=== PATIENT | male | born 1960 | race Caucasian/White ===

== ENCOUNTER 2016-07-17 21:57 | Inpatient (IN) | payer OTHER ==
[~2016-07-17] VITALS: Ht 167.6 cm; Wt 77.1 kg
[~2016-07-17 21:57] MED LIST: AEROMIS4 INH; VENTAER INH; ZITH250T PO
[2016-07-17 21:58] VITALS: RESP 22; TEMP 97.7
[2016-07-17 22:00] VITALS: BP 123/87; PULSE 89; RESP 16; O2SAT 96
[2016-07-17] MEDS ORDERED: AMIO200T PO (22:09)
[2016-07-17 22:30] VITALS: BP 90/50; PULSE 69; RESP 16; O2SAT 96
[2016-07-17 23:09] LABS: AUTOMATED NEUTROPHIL # 4.9 TH/MM3 (1.8-7.7); BASOPHIL % 0.4 % (0.0-2.0); EOSINOPHIL # 0.2 TH/MM3 (0-0.4); EOSINOPHIL % 2.3 % (0.0-4.0); HEMATOCRIT 32.3 % (39.0-51.0); HEMO FLAGS DIFF FINAL; LYMPH % 27.7 % (9.0-44.0); LYMPHOCYTE # 2.3 TH/MM3 (1.0-4.8); MEAN CELL VOLUME 100.8 FL (80.0-100.0); MEAN CORPUSCULAR HEMOGLOBIN 35.5 PG (27.0-34.0); MEAN CORPUSCULAR HGB CONC 35.3 % (32.0-36.0); NEUT % 58.6 % (16.0-70.0); PLATELET COUNT 121 TH/MM3 (150-450); RED BLOOD COUNT 3.21 MIL/MM3 (4.50-5.90); RED CELL DISTRIBUTION WIDTH 13.7 % (11.6-17.2); WHITE BLOOD COUNT 8.3 TH/MM3 (4.0-11.0)
[2016-07-17] MEDS ORDERED: CARV3.125 PO (23:15)
[2016-07-17 23:22] LABS: INTERNATIONAL NORMALIZED RATIO 1.1 RATIO; PROTHROMBIN TIME - PATIENT 11.7 SEC (9.8-11.6)
[2016-07-17] MEDS ORDERED: SODIUM CHLOR 0.9% 1000 ML INJ 1,000 ML IV SCH (23:22)
[2016-07-17 23:30] VITALS: BP_SYST 120; BP_SYST 90; BP_DIAS 50; BP_DIAS 61; PULSE 61; PULSE 69; RESP 16; O2SAT 97
[2016-07-17] MEDS ORDERED: PANTOPRAZOLE INJ 80 MG in SODIUM CHLORIDE 0.9% INJ 35 ML IV ONE (23:30)
--- NOTE | 2016-07-17 23:31 | PD ---
HPI Chief Complaint: GI Complaint Time Seen by Provider: 23:11 Travel History International Travel<30 days: No Contact w/Intl Traveler<30days: No Traveled to known affect area: No History of Present Illness HPI 56-year-old male complains of bloody stool coming out of the colostomy. Patient states that he has bloody stool for the past 3 days. 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 Patient states that he has abdominal pain for the past 3 days also. Patient states the pain the sharp pain most in the right side the abdomen. Patient denies any pain radiation. Patient states that the pain is worse on the right position. Patient states the pain is better when lying down. Patient denies any nausea vomiting. Patient denies any fever chills. Patient denies any history GI bleed. Patient states that he had facial trauma status post facial surgery that required blood transfusion about 5 years ago. Patient has history of atrial fibrillation, hypertension. Patient's on amiodarone. Patient denies any recent NSAIDs intake. 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) Pneumonia: Yes Influenza Vaccination: No Past Surgical History Abdominal Surgery: Yes ("Colon Surgery" ) Appendectomy: Yes Cardiac Surgery: No Ear Surgery: No Endocrine Surgery: No Eye Surgery: No Genitourinary Surgery: No Oral Surgery: No Thoracic Surgery: No Other Surgery: Yes (facial, HERNIA REPAIR , LUNG SURGERY ) Social History Alcohol Use: Yes (10 BEERS DAILY ) Tobacco Use: Yes (5-15 cigs a day.) Substance Use: Yes (ETOH Abuse - today 9 beers BAL 241; Nicotine - 5-15 cigs a day.) Allergies-Medications (Allergen,Severity, Reaction): Uncoded Allergies: NARCOTICS (Allergy, Severe, ACTS OUT/BEHAVIORAL, 07/25/07) Reported Meds & Prescriptions Reported Meds & Active Scripts Active Reported Coreg (Carvedilol) 3.125 Mg Tab 3.125 Mg PO BID Amiodarone (Amiodarone HCl) 200 Mg Tab 200 Mg PO DAILY Review of Systems General / Constitutional: No: Fever Eyes: No: Visual changes HENT: No: Headaches Cardiovascular: No: Chest Pain or Discomfort Respiratory: No: Shortness of Breath Gastrointestinal: Positive: Abdominal Pain, Hematochezia Genitourinary: No: Dysuria Musculoskeletal: No: Pain Skin: No Rash Neurologic: No: Weakness Psychiatric: No: Depression Endocrine: No: Polydipsia Hematologic/Lymphatic: No: Easy Bruising Physical Exam Narrative GENERAL: Well-nourished, well-developed patient. SKIN: Warm and dry. HEAD: Normocephalic. EYES: No scleral icterus. No injection or drainage. NECK: Supple, trachea midline. No JVD or lymphadenopathy. CARDIOVASCULAR: Regular rate and rhythm without murmurs, gallops, or rubs. RESPIRATORY: Breath sounds equal bilaterally. No accessory muscle use. GASTROINTESTINAL: Abdomen soft, nondistended. Patient has moderate tenderness on palpation right side of the abdomen. No rebound tenderness. No mass. Colostomy in place. MUSCULOSKELETAL: No cyanosis, or edema. BACK: Nontender without obvious deformity. No CVA tenderness. Neurologic exam normal. Data Data Last Documented VS Vital Signs Date Time Temp Pulse Resp B/P Pulse Ox O2 Delivery O2 Flow Rate FiO2 07/18/16 00:00 79 16 114/58 07/17/16 23:30 97 07/17/16 22:30 Room Air 07/17/16 21:58 97.7 Orders Complete Blood Count With Diff (07/17/16 22:53) Comprehensive Metabolic Panel (07/17/16 22:53) Prothrombin Time / Inr (Pt) (07/17/16 22:53) Type And Screen (07/17/16 23:22) Lipase (07/17/16 23:22) Act Partial Throm Time (Ptt) (07/17/16 23:22) Urinalysis - C+S If Indicated (07/17/16 23:22) Sodium Chlor 0.9% 1000 Ml Inj (Ns 1000 M (07/17/16 23:22) Pantoprazole Inj (Protonix Inj) (07/17/16 23:30) Pantoprazole Inj (Protonix Inj) (07/17/16 23:30) Ct Abd/Pel W Iv Contrast(Rout) (07/18/16 ) Nicotine 14 Mg Patch.24 Hr (Habitrol 14 (07/17/16 23:45) Sodium Chlor 0.9% 1000 Ml Inj (Ns 1000 M (07/18/16 00:15) Labs Laboratory Tests Test 07/17/16 07/17/16 22:00 23:30 White Blood Count 8.3 TH/MM3 Red Blood Count 3.21 MIL/MM3 Hemoglobin 11.4 GM/DL Hematocrit 32.3 % Mean Corpuscular Volume 100.8 FL Mean Corpuscular Hemoglobin 35.5 PG Mean Corpuscular Hemoglobin 35.3 % Concent Red Cell Distribution Width 13.7 % Platelet Count 121 TH/MM3 Mean Platelet Volume 9.7 FL Neutrophils (%) (Auto) 58.6 % Lymphocytes (%) (Auto) 27.7 % Monocytes (%) (Auto) 11.0 % Eosinophils (%) (Auto) 2.3 % Basophils (%) (Auto) 0.4 % Neutrophils # (Auto) 4.9 TH/MM3 Lymphocytes # (Auto) 2.3 TH/MM3 Monocytes # (Auto) 0.9 TH/MM3 Eosinophils # (Auto) 0.2 TH/MM3 Basophils # (Auto) 0.0 TH/MM3 CBC Comment DIFF FINAL Differential Comment Prothrombin Time 11.7 SEC Prothromb Time International 1.1 RATIO Ratio Activated Partial 23.2 SEC Thromboplast Time Lipase 283 U/L Sodium Level 122 MEQ/L Potassium Level 3.4 MEQ/L Chloride Level 84 MEQ/L Carbon Dioxide Level 25.0 MEQ/L Anion Gap 13 MEQ/L Blood Urea Nitrogen 10 MG/DL Creatinine 1.09 MG/DL Estimat Glomerular Filtration 70 ML/MIN Rate Random Glucose 95 MG/DL Calcium Level 8.4 MG/DL Total Bilirubin 0.7 MG/DL Aspartate Amino Transf 118 U/L (AST/SGOT) Alanine Aminotransferase 75 U/L (ALT/SGPT) Alkaline Phosphatase 83 U/L Total Protein 6.8 GM/DL Albumin 3.2 GM/DL Blood Type B POSITIVE Antibody Screen NEGATIVE Blood Bank Comment MDM Medical Decision Making Medical Screen Exam Complete: Yes Emergency Medical Condition: Yes Interpretation(s) 12:45 AM. He received WBC 8.3. Hemoglobin 11.5 hematocrit 32.3. MCV 100.8. Platelets 121. Sodium 122. Potassium 3.4. Chloride 84. Calcium 8.4. AST 118. Differential Diagnosis Differential diagnosis including AV malformation, colitis, bowel lesion. Narrative Course 56-year-old male with abdominal pain and bloody stool from colostomy. Normal saline solution 1 L IV bolus. Protonix bolus and drip started. Normal saline solution 1 25 cc an hour. Levaquin 750 mg IV. Flagyl 500 mg IV. Diagnosis Primary Impression: GI bleed Qualified Code: K92.2 - Gastrointestinal hemorrhage, unspecified gastrointestinal hemorrhage type Additional Impression: Hyponatremia Admitting Information Admitting Physician Requests: Admit Manfred Stone MD Jul 17, 2016 23:31
[2016-07-17] MEDS ORDERED: NICOTINE 14 MG/24 HR PATCH TD ONE (23:45)
[2016-07-17] MEDS: PANTOPRAZOLE INJ 80 MG in SODIUM CHLORIDE 0.9% INJ 100 ML IV SCH (23:48)
[2016-07-17 23:49] LABS: APTT (PATIENT) 23.2 SEC (24.3-30.1)
[2016-07-18] VITALS: BP 114/58; PULSE 79; RESP 16
[2016-07-18 00:07] LABS: ALKALINE PHOSPHATASE 83 U/L (45-117); ALT (GPT) 75 U/L (12-78); ANION GAP 13 MEQ/L (5-15); AST (GOT) 118 U/L (15-37); BLOOD UREA NITROGEN 10 MG/DL (7-18); CHLORIDE 84 MEQ/L (98-107); GLOMERULAR FILTRATION RATE 70 ML/MIN (>89); POTASSIUM 3.4 MEQ/L (3.5-5.1); TOTAL BILIRUBIN ADULT 0.7 MG/DL (0.2-1.0)
[2016-07-18 00:09] LABS: SODIUM (NA) 122 MEQ/L (136-145)
[2016-07-18] MEDS ORDERED: SODIUM CHLOR 0.9% 1000 ML INJ 1,000 ML IV SCH (00:15)
[2016-07-18] MEDS ORDERED: LEVOFLOXACIN 750 MG PREMIX INJ 150 ML IV ONE (01:00)
[2016-07-18] MEDS ORDERED: metroNIDAZOLE 500 MG INJ 100 ML IV ONE (01:00)
[2016-07-18] MEDS ORDERED: IOHEXOL 350 MG/ML 10 ML VIAL (for RAD DIAG) IV ONE (01:34)
--- NOTE | 2016-07-18 01:56 | RADRPT ---
EXAM DATE/TIME: 07/18/2016 01:32 [facility] COMPARISON: CT ABDOMEN & PELVIS W CONTRAST, April 23, 2015, 11:27. INDICATIONS : Right sided abdomen pain with bloody discharge from colostomy. IV CONTRAST: 96 cc Omnipaque 350 (iohexol) IV ORAL CONTRAST: No oral contrast ingested. RADIATION DOSE: 11.72 CTDIvol (mGy) MEDICAL HISTORY : Cardiovascular disease. Hypertension. SURGICAL HISTORY : Colostomy. Appendectomy.Hernia ENCOUNTER: Initial ACUITY: 3 days PAIN SCALE: 5/10 LOCATION: Right abdomen TECHNIQUE: Volumetric scanning of the abdomen and pelvis was performed. Using automated exposure control and ad justment of the mA and/or kV according to patient size, radiation dose was kept as low as reasonably achievable to obtain optimal diagnostic quality images. FINDINGS: LOWER LUNGS: The visualized lower lungs are clear. LIVER: Homogeneous density without lesion. The left lobe of the liver is prominent in size but stable compar ed to the prior study. There continues to be some fatty infiltration of the liver. There is no dilati on of the biliary tree. No calcified gallstones. SPLEEN: Normal size without lesion. Granulomas. PANCREAS: Within normal limits. KIDNEYS: Normal in size and shape. There is no mass, stone or hydronephrosis. Extrarenal pelves. ADRENAL GLANDS: Within normal limits. VASCULAR: There is no aortic aneurysm. Atherosclerotic changes. Duplicated IVC. A few stable nonspecific perire ctal lymph nodes. BOWEL/MESENTERY: There is evidence of abdominal surgery with bowel resection. There is an ileostomy in the left midabd omen which is stable in its appearance. The bowel gas pattern is within normal limits with no evidenc e of obstruction. 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 No definite inflammatory changes are demonstrated. No free fluid or loculated fluid collections are seen. No free air is seen. ABDOMINAL WALL: Postsurgical changes. RETROPERITONEUM: There are a few stable para-aortic lymph nodes. Otherwise no definite adenopathy.. BLADDER: No wall thickening or mass. REPRODUCTIVE: Within normal limits. INGUINAL: There is no lymphadenopathy. Small right inguinal hernia containing fat. No significant change. MUSCULOSKELETAL: Within normal limits for patient age. Bony degenerative changes. Compared to the prior exam there has been no significant changes. CONCLUSION: 1. Stable CT scan of the abdomen and pelvis compared to 2015. No new or significant changes. No acute intra-abdominal or pelvic pathology. 2. Stable prominence of the left lobe of the liver. 3. Stable prominent Allie's pouch 4. Stable fatty infiltration of the liver. Jasson Moreno MD on July 18, 2016 at 1:45 Board Certified Radiologist. This report was verified electronically.
[2016-07-18] MEDS ORDERED: SODIUM CHLORIDE 0.9% FLUSH 5 ML FLUSH FLUSH PRN (03:45)
[2016-07-18] MEDS ORDERED: NALOXONE HCL 0.4 MG/ML AMP IV PRN (03:45)
[2016-07-18] MEDS ORDERED: LORazepam 2 MG/ML VIAL IV PUSH PRN ×2 (03:45)
[2016-07-18] MEDS ORDERED: FLUMAZENIL 0.5 MG/5 ML VIAL IV PUSH PRN (03:45)
[2016-07-18] MEDS ORDERED: ACETAMINOPHEN 325 MG TAB PO PRN ×2 (03:45)
--- NOTE | 2016-07-18 03:57 | HHI.HP ---
[facility] Unknown Admission Diagnosis GI bleed. Hyponatremia. Diagnoses: Chief Complaint: Blood in stool, abdominal pain Travel History International Travel<30 Days: No Contact w/Intl Traveler <30 Da: No Traveled to Known Affected Are: No History of Present Illness The patient is a 56-year-old male with a past medical history of a defect with weakened abdominal muscles requiring ostomy placement who is presenting to the hospital with abdominal pain and excessive bloody output from the ostomy. The patient says that he noticed bloody output over the past 3 days. He says he has had to empty the ostomy bag much more frequently than normal. He has had decreased energy and poor balance over the last few days as well. He says he has been using a wheelchair recently. He says over the past couple of weeks he has had right-sided abdominal pain upon palpation. He endorses a poor appetite. He says he eats once a day. He does drink up to 10 beers daily. He says he has had the shakes before but has never had an alcohol withdrawal seizure. He also mentions that he has chronic numbness and tingling in his legs and feet. He says he has been following up with the neurologist and has had MRIs but does not know the results of those tests are. The patient says that he does not take any blood thinners including aspirin for his atrial fibrillation. Review of Systems Constitutional: COMPLAINS OF: Fatigue, Change in appetite Gastrointestinal: COMPLAINS OF: Abdominal pain, Bloody stools Musculoskeletal: COMPLAINS OF: Back pain, Neck pain Neurologic: COMPLAINS OF: Abnormal gait, Paresthesias, Tremor, Poor Balance Past Family Social History Past Medical History Atrial fibrillation Hypertension Hyperlipidemia Bipolar disorder Alcohol abuse Past Surgical History Hernia repair 5 Lung fistula repair Facial surgery Appendectomy Allergies: Uncoded Allergies: NARCOTICS (Allergy, Severe, ACTS OUT/BEHAVIORAL, 07/25/07) Active Ordered Medications Current Medications Medications (Trade) Dose Ordered Sig/Vijay Route Start Time Stop Time Status Last Admin (Protonix Inj/NS Inj) 100 ml @ 10 mls/hr Q10H IV 07/17/16 23:30 07/17/16 23:48 (NS Flush) 2 ml UNSCH PRN FLUSH 07/18/16 03:45 (NS Flush) 2 ml BID FLUSH 07/18/16 09:00 (Tylenol) 650 mg Q4H PRN PO 07/18/16 03:45 (Tylenol) 650 mg Q6H PRN PO 07/18/16 03:45 (Narcan Inj) 0.4 mg UNSCH PRN IV 07/18/16 03:45 (Romazicon Inj) 0.2 mg Q1M PRN IV PUSH 07/18/16 03:45 07/18/16 03:50 (Ativan) 1 mg Q4H PRN PO 07/18/16 03:45 (Ativan Inj) 1 mg Q4H PRN IV PUSH 07/18/16 03:45 (Ativan) 2 mg Q2H PRN PO 07/18/16 03:45 (Ativan Inj) 2 mg Q2H PRN IV PUSH 07/18/16 03:45 (Ativan Inj) 2 mg Q1H PRN IV PUSH 07/18/16 03:45 Lorazepam 2 mg 2 mg Q15M PRN IV PUSH 07/18/16 03:45 (KCl Inj/D5W-NS 1000 ml Inj) 1,015 ml @ 100 mls/hr Q10H9M IV 07/18/16 03:45 Nicotine 1 patch 1 patch DAILY TD 07/18/16 09:00 (Flagyl 500 Mg Inj) 100 ml @ 100 mls/hr Q8H IV 07/18/16 09:00 UNV Family History The patient denies pertinent family history. Social History The patient smokes 1 pack per day. He drinks 10 beers daily. He denies any drug use. Physical Exam Vital Signs Vital Signs Date Time Temp Pulse Resp B/P Pulse Ox O2 Delivery O2 Flow Rate FiO2 07/18/16 00:00 79 16 114/58 07/17/16 23:30 61 16 120/61 97 07/17/16 22:30 69 16 90/50 96 Room Air 07/17/16 22:00 89 16 123/87 96 Room Air 07/17/16 21:58 97.7 22 Physical Exam GENERAL: Well-nourished, well-developed patient, resting comfortably. SKIN: Warm and dry. HEAD: Normocephalic, atraumatic. EYES: No scleral icterus. No injection or drainage. NECK: Supple, trachea midline. No JVD or lymphadenopathy. CARDIOVASCULAR: Regular rate and rhythm without murmurs, gallops, or rubs. RESPIRATORY: Breath sounds equal bilaterally. No accessory muscle use. GASTROINTESTINAL: Abdomen soft, nondistended. Patient has moderate tenderness on palpation on the right side of the abdomen. No rebound tenderness. No mass. Colostomy in place. MUSCULOSKELETAL: No cyanosis, or edema. BACK: Nontender without obvious deformity. No CVA tenderness. NEURO: No gross deficits. PSYCH: Mood and affect appropriate. Laboratory Laboratory Tests Test 07/17/16 07/17/16 22:00 23:30 White Blood Count 8.3 Red Blood Count 3.21 Hemoglobin 11.4 Hematocrit 32.3 Mean Corpuscular Volume 100.8 Mean Corpuscular Hemoglobin 35.5 Mean Corpuscular Hemoglobin 35.3 Concent Red Cell Distribution Width 13.7 Platelet Count 121 Mean Platelet Volume 9.7 Neutrophils (%) (Auto) 58.6 Lymphocytes (%) (Auto) 27.7 Monocytes (%) (Auto) 11.0 Eosinophils (%) (Auto) 2.3 Basophils (%) (Auto) 0.4 Neutrophils # (Auto) 4.9 Lymphocytes # (Auto) 2.3 Monocytes # (Auto) 0.9 Eosinophils # (Auto) 0.2 Basophils # (Auto) 0.0 CBC Comment DIFF FINAL Differential Comment Prothrombin Time 11.7 Prothromb Time International 1.1 Ratio Activated Partial 23.2 Thromboplast Time Lipase 283 Sodium Level 122 Potassium Level 3.4 Chloride Level 84 Carbon Dioxide Level 25.0 Anion Gap 13 Blood Urea Nitrogen 10 Creatinine 1.09 Estimat Glomerular Filtration 70 Rate Random Glucose 95 Calcium Level 8.4 Total Bilirubin 0.7 Aspartate Amino Transf 118 (AST/SGOT) Alanine Aminotransferase 75 (ALT/SGPT) Alkaline Phosphatase 83 Total Protein 6.8 Albumin 3.2 Blood Type B POSITIVE Antibody Screen NEGATIVE Blood Bank Comment Result Diagram: 07/17/160 07/17/16 2330 Imaging Last Impressions Abdomen/Pelvis CT 07/18/16 0000 Signed Impressions: Service Date/Time: Monday, July 18, 2016 01:32 - CONCLUSION: 1. Stable CT scan of the abdomen and pelvis compared to 2015. No new or significant changes. No acute intra-abdominal or pelvic pathology. 2. Stable prominence of the left lobe of the liver. 3. Stable prominent Allie's pouch 4. Stable fatty infiltration of the liver. Jasson Moreno MD Assessment and Plan Assessment and Plan GIB/ diarrhea/ abdominal pain The patient has had increased ostomy output with a significant amount of blood in it. He has had decreased energy and has felt off balance for the past few days. Gastroenterology was contacted by the emergency department. - Continue Protonix drip. - Keep the patient nothing by mouth with IV fluids. - Follow up with gastroenterology. - Continue Levaquin and Flagyl to cover for colitis as the patient is having abdominal pain and increased stool production. - Stool cultures, C. difficile PCR. Hyponatremia/ hypokalemia Sodium level is 122. The patient appears euvolemic. Secondary to excessive beer intake. The pt has had hyponatremia in the past. - IV fluids with KCl. - Follow BMP and adjust fluids as needed. Alcohol abuse The pt endorses up to 10 beers daily. - cessation instruction. - CIWA protocol. Atrial fibrillation The pt is on Coreg and amiodarone as an outpt. He is not on anticoagulation. - telemetry. - hold Coreg and amiodarone in the setting of relative hypotension. Nicotine abuse The pt smokes 1 PPD. - cessation instruction. - nicotine patch. PPx: SCDs; PPI. Code Status Full Discussed Condition With Dr. Stone, pt. Physician Certification 2 Midnight Certification Type: Admission for Inpatient Services Order for Inpatient Services The services are ordered in accordance with Medicare regulations or non- Medicare payer requirements, as applicable. In the case of services not specified as inpatient-only, they are appropriately provided as inpatient services in accordance with the 2-midnight benchmark. Estimated LOS (days): 2 days is the estimated time the patient will need to remain in the hospital, assuming treatment plan goals are met and no additional complications. Post-Hospital Plan: Home Quique Gaffney DO Jul 18, 2016 03:57
[2016-07-18 05:39] LABS: AUTOMATED NEUTROPHIL # 3.3 TH/MM3 (1.8-7.7); BASOPHIL % 0.5 % (0.0-2.0); EOSINOPHIL # 0.1 TH/MM3 (0-0.4); EOSINOPHIL % 1.2 % (0.0-4.0); HEMATOCRIT 30.7 % (39.0-51.0); LYMPH % 20.8 % (9.0-44.0); LYMPHOCYTE # 1.1 TH/MM3 (1.0-4.8); MEAN CELL VOLUME 101.6 FL (80.0-100.0); MEAN CORPUSCULAR HEMOGLOBIN 35.8 PG (27.0-34.0); MEAN CORPUSCULAR HGB CONC 35.2 % (32.0-36.0); NEUT % 63.5 % (16.0-70.0); PLATELET COUNT 68 TH/MM3 (150-450); RED BLOOD COUNT 3.02 MIL/MM3 (4.50-5.90); RED CELL DISTRIBUTION WIDTH 13.6 % (11.6-17.2); WHITE BLOOD COUNT 5.2 TH/MM3 (4.0-11.0)
[2016-07-18 05:42] LABS: HEMO FLAGS AUTO DIFF
[2016-07-18 06:05] LABS: ANION GAP 13 MEQ/L (5-15); AST (GOT) 103 U/L (15-37); BICARBONATE 23.9 MEQ/L (21.0-32.0); BLOOD UREA NITROGEN 10 MG/DL (7-18); CHLORIDE 91 MEQ/L (98-107); GLOMERULAR FILTRATION RATE 75 ML/MIN (>89); MAGNESIUM 1.7 MG/DL (1.5-2.5); POTASSIUM 3.6 MEQ/L (3.5-5.1); SODIUM (NA) 128 MEQ/L (136-145)
[2016-07-18 06:08] LABS: ALKALINE PHOSPHATASE 83 U/L (45-117); ALT (GPT) 65 U/L (12-78); TOTAL BILIRUBIN ADULT 0.6 MG/DL (0.2-1.0)
[2016-07-18] MEDS: POTASSIUM CHLORIDE INJ 30 MEQ in DEXT 5%-NACL 0.9% 1000 ML INJ 1,000 ML IV SCH ×2 (06:16→14:56)
[2016-07-18 07:48] LABS: PLATELET ESTIMATE SMEAR NORMAL (NORMAL); PLATELET MORPHOLOGY NORMAL (NORMAL); SCAN/DIFF AUTO DIFF CONFIRMED
--- NOTE | 2016-07-18 07:55 | PD.CONS ---
HPI History of Present Illness This is a 56 year old male patient with a hx of a defect with weakened abdominal muscles who has undergone multiple hernia repairs and had a colostomy placed at age 13. He reports that he has had 7 hernia repairs, with the last one being about [address] Reddy (pt unsure of spelling) in [place], [place]. He came to the ER for evaluation of GI bleeding that began 3 days ago. He does occasionally will have some GI bleeding, but states he has never had anything like this before. He reports when his symptoms began 3 days ago, it began with some nausea and vomiting. He did not vomit any blood or have coffee ground emesis. He denies any abdominal pain to me, but has significant RLQ tenderness on exam. For the past 3 days, he has had increased stool output and it has been a dark color almost black. He states that he has had a decreased appetite for the past 2 months. He has lost a significant amount amount of weight during that time with about 27 lbs lost. He has heartburn and reflux and takes TUMs for this. He states sometimes this is daily and sometimes not that often- it is related to food. He has it if he has anything with "a little bit of spice to it." He denies any hx of PUD. He cannot tell me when his last colonoscopy was. He states he has never had an EGD. He denies the use of any NSAIDs or ASA. He states he never takes this because once he did and had to go to the ER for the same symptoms. This was in [facility] and he cannot tell me exactly when. He reports that he has been more tired than usual and having generalized weakness. He denies any hx of Crohn's or Ulcerative colitis. (Radha Kebede) PFSH Past Medical History Atrial fibrillation Hypertension Hyperlipidemia Bipolar disorder Alcohol abuse Abdominal hernias GI bleeding in past- unclear etiology Past Surgical History Hernia repair 5 Lung fistula repair Facial surgery Appendectomy Colonoscopy (Radha Kebede) Uncoded Allergies: NARCOTICS (Allergy, Severe, ACTS OUT/BEHAVIORAL, 07/25/07) Medications Allergies Uncoded Allergies Type Severity Reaction Last Updated Verified NARCOTICS Allergy Severe ACTS OUT/BEHAVIORAL 07/25/07 Active Scripts Medications Dose Route/Sig Days Date Category Coreg (Carvedilol) 3.125 Mg Tab 3.125 Mg PO BID 07/17/16 Reported Amiodarone (Amiodarone HCl) 200 Mg Tab 200 Mg PO DAILY 07/17/16 Reported Family History The patient denies pertinent family history. Social History The patient smokes 1 pack per day. He drinks 10 beers daily. He denies any drug use. (DelioRadha JONES) Review of Systems Constitutional: COMPLAINS OF: Fatigue, Weight loss, Change in appetite Respiratory: DENIES: Cough, Shortness of breath Cardiovascular: DENIES: Chest pain Gastrointestinal: COMPLAINS OF: Abdominal pain, Black stools, Diarrhea, Nausea , Vomiting, Anorexia, Heartburn, DENIES: Bloody stools, Constipation, Hematemesis Musculoskeletal: DENIES: Joint pain Integumentary: DENIES: Abnormal pigmentation Hematologic/lymphatic: DENIES: Bruising Neurologic: DENIES: Headache Psychiatric: DENIES: Confusion (KebedeRadha) GI Exam Vitals I&O Vital Signs Date Time Temp Pulse Resp B/P Pulse Ox O2 Delivery O2 Flow Rate FiO2 07/18/16 00:00 79 16 114/58 07/17/16 23:30 61 16 120/61 97 07/17/16 22:30 69 16 90/50 96 Room Air 07/17/16 22:00 89 16 123/87 96 Room Air 07/17/16 21:58 97.7 22 Imaging Last Impressions Abdomen/Pelvis CT 07/18/16 0000 Signed Impressions: Service Date/Time: Monday, July 18, 2016 01:32 - CONCLUSION: 1. Stable CT scan of the abdomen and pelvis compared to 2014. No new or significant changes. No acute intra-abdominal or pelvic pathology. 2. Stable prominence of the left lobe of the liver. 3. Stable prominent Allie's pouch 4. Stable fatty infiltration of the liver. Jasson Moreno MD Laboratory Test 07/17/16 07/17/16 07/18/16 22:00 23:30 05:16 White Blood Count 8.3 TH/MM3 5.2 TH/MM3 Red Blood Count 3.21 MIL/MM3 3.02 MIL/MM3 Hemoglobin 11.4 GM/DL 10.8 GM/DL Hematocrit 32.3 % 30.7 % Mean Corpuscular Volume 100.8 FL 101.6 FL Mean Corpuscular Hemoglobin 35.5 PG 35.8 PG Mean Corpuscular Hemoglobin 35.3 % 35.2 % Concent Red Cell Distribution Width 13.7 % 13.6 % Platelet Count 121 TH/MM3 68 TH/MM3 Mean Platelet Volume 9.7 FL 7.9 FL Neutrophils (%) (Auto) 58.6 % 63.5 % Lymphocytes (%) (Auto) 27.7 % 20.8 % Monocytes (%) (Auto) 11.0 % 14.0 % Eosinophils (%) (Auto) 2.3 % 1.2 % Basophils (%) (Auto) 0.4 % 0.5 % Neutrophils # (Auto) 4.9 TH/MM3 3.3 TH/MM3 Lymphocytes # (Auto) 2.3 TH/MM3 1.1 TH/MM3 Monocytes # (Auto) 0.9 TH/MM3 0.7 TH/MM3 Eosinophils # (Auto) 0.2 TH/MM3 0.1 TH/MM3 Basophils # (Auto) 0.0 TH/MM3 0.0 TH/MM3 CBC Comment DIFF FINAL AUTO DIFF Differential Comment Prothrombin Time 11.7 SEC Prothromb Time International 1.1 RATIO Ratio Activated Partial 23.2 SEC Thromboplast Time Lipase 283 U/L Sodium Level 122 MEQ/L 128 MEQ/L Potassium Level 3.4 MEQ/L 3.6 MEQ/L Chloride Level 84 MEQ/L 91 MEQ/L Carbon Dioxide Level 25.0 MEQ/L 23.9 MEQ/L Anion Gap 13 MEQ/L 13 MEQ/L Blood Urea Nitrogen 10 MG/DL 10 MG/DL Creatinine 1.09 MG/DL 1.03 MG/DL Estimat Glomerular Filtration 70 ML/MIN 75 ML/MIN Rate Random Glucose 95 MG/DL 112 MG/DL Calcium Level 8.4 MG/DL 8.4 MG/DL Total Bilirubin 0.7 MG/DL 0.6 MG/DL Aspartate Amino Transf 118 U/L 103 U/L (AST/SGOT) Alanine Aminotransferase 75 U/L 65 U/L (ALT/SGPT) Alkaline Phosphatase 83 U/L 83 U/L Total Protein 6.8 GM/DL 6.4 GM/DL Albumin 3.2 GM/DL 2.9 GM/DL Blood Type B POSITIVE Antibody Screen NEGATIVE Blood Bank Comment Phosphorus Level 2.6 MG/DL Magnesium Level 1.7 MG/DL Physical Examination HEENT: Normocephalic; atraumatic; no jaundice. CHEST: CTA CARDIAC: RRR ABDOMEN: Soft, nondistended, significant tenderness in RLQ, no hepatosplenomegaly; bowel sounds are present in all four quadrants. Colostomy LLQ- dark green/?black stool EXTREMITIES: No clubbing, cyanosis, or edema. SKIN: Normal; no rash; no jaundice. 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 Poor historian (Radha Kebede) Assessment and Plan Plan ASSESSMENT: - GIB. Pt reports dark output from his colostomy bag x 3 days. No hx of PUD. Does not take NSAIDS/ASA. He reports a hx of GI bleeding in the past with ASA use, but cannot really provide any details and denies having EGD. He has dark liquid stool- dark green vs. ?black. HH 10.8/30.7. He cannot tell me when his last colonoscopy was. - Anemia, acute blood loss. HH 10.8/30.7. - Abdominal pain. Abdomen/Pelvis CT (07/18/16)----> 1. Stable CT scan of the abdomen and pelvis compared to 2015. No new or significant changes. No acute intra-abdominal or pelvic pathology. 2. Stable prominence of the left lobe of the liver. 3. Stable prominent Allie's pouch 4. Stable fatty infiltration of the liver. Pt denied abdominal pain and then had significant tenderness in RLQ. No distention. - Anorexia, Wt. Loss. Decreased appetite with 27 lb weight loss. - Hx multiple hernia repairs/colostomy. Pt reports 7 abdominal hernia repairs, requiring colostomy for unknown reason at age 13. Last abdominal hernia repair was about [address] Reddy (pt unsure of spelling) in [place], [place]. - Elevated LFT. Pt with long etoh abuse hx. T. Bili 0.6, AST 103, Alt 65, aLK pHOSPH 83. Plt 68. PT 11.7, APTT 23.2. Albumin 2.9. ? Underlying liver dz related to ETOH. - Hyponatremia. 122--->128 - Thrombocytopenia. Plt 68. - Afib, HTN, Hyperlipidemia, Bipolar d/o per primary. PLAN: - Plan for egd with colonoscopy via colostomy, sigmoidoscopy in am - Obtain consents - Clear liquids - NPO after MN - Magnesium citrate prep - Protonix Gtt - Cont. Flagyl, Levaquin - Stool studies - CBC, CMP in am - Hepatitis profile - PA, ASMA, AMA - Obtain records from Dr. Kobi Aguilar in [facility] - Supportive care - Further recommendations to follow based on results of above - Pt seen and examined by Dr. Bray and myself and this note is written on her behalf (Radha Kebede) Physician Comments seen, examined agree with above (Zulema Bray MD) Radha Kebede Jul 18, 2016 07:55 Zulema Bray MD Jul 18, 2016 17:29
[2016-07-18] MEDS: LORazepam 2 MG/ML VIAL IV PUSH PRN ×6 (07:58→22:07)
[2016-07-18] MEDS: NICOTINE 21 MG/24 HR PATCH TD SCH (07:59)
[2016-07-18 08:00] VITALS: BP 143/75; PULSE 94; RESP 20; O2SAT 96
[2016-07-18] MEDS: SODIUM CHLORIDE 0.9% FLUSH 5 ML FLUSH FLUSH SCH ×2 (08:00→21:45)
[2016-07-18] MEDS: PANTOPRAZOLE INJ 80 MG in SODIUM CHLORIDE 0.9% INJ 100 ML IV SCH ×2 (09:30→18:43)
[2016-07-18 12:43] VITALS: BP 155/94; PULSE 103; RESP 16; O2SAT 97
[2016-07-18] MEDS: metroNIDAZOLE 500 MG INJ 100 ML IV SCH ×2 (14:56→21:45)
[2016-07-18] MEDS ORDERED: MAGNESIUM CITRATE SOLN 300 ML BTL PO ONE ×2 (17:00→19:00)
--- NOTE | 2016-07-18 19:52 | HHI.PR ---
Addendum to Inpatient Note Addendum Reason: Additional Documentation Additional Information As per RN patient scoring 13 on CIWA scale. Patient is tremolous. Denies hallucinations. denies cp/sob Patiewnt is awake and alert, NAD. Clear lungs. Tremors in upper extremities. 1. GI bleed] 2. Etoh withdrawal 3. Acute blood loss anemia 4. etoh abuse and dependence. Continue CIWA scale. Appreciate GI consultation. Monitor H/H Q 6 hrs. Transfuse for hemoglobin less than 9 if active bleeding. Case discussed with RN. Gregor Ibrahim MD Jul 18, 2016 19:52
[2016-07-18 20:00] VITALS: BP 97/62; PULSE 70; RESP 16; TEMP 97.8; O2SAT 97
[2016-07-19] VITALS: BP 142/81; PULSE 71; RESP 15; TEMP 97.6; O2SAT 99
[2016-07-19] MEDS: LORazepam 2 MG/ML VIAL IV PUSH PRN ×5 (00:34→14:17)
[2016-07-19] MEDS: LEVOFLOXACIN 750 MG PREMIX INJ 150 ML IV SCH ×2 (00:35→23:59)
[2016-07-19] MEDS: POTASSIUM CHLORIDE INJ 30 MEQ in DEXT 5%-NACL 0.9% 1000 ML INJ 1,000 ML IV SCH ×3 (01:57→20:21)
[2016-07-19 04:00] VITALS: BP 133/79; PULSE 68; RESP 16; TEMP 97.8; O2SAT 98
[2016-07-19 05:24] LABS: AUTOMATED NEUTROPHIL # 3.5 TH/MM3 (1.8-7.7); BASOPHIL # 0.2 TH/MM3 (0-0.2); BASOPHIL % 4.4 % (0.0-2.0); EOSINOPHIL % 0.7 % (0.0-4.0); HEMATOCRIT 30.7 % (39.0-51.0); LYMPH % 11.2 % (9.0-44.0); LYMPHOCYTE # 0.5 TH/MM3 (1.0-4.8); MEAN CELL VOLUME 103.2 FL (80.0-100.0); MEAN CORPUSCULAR HEMOGLOBIN 35.2 PG (27.0-34.0); MEAN CORPUSCULAR HGB CONC 34.1 % (32.0-36.0); MONO % 12.1 % (0.0-8.0); NEUT % 71.6 % (16.0-70.0); PLATELET COUNT 70 TH/MM3 (150-450); RED BLOOD COUNT 2.98 MIL/MM3 (4.50-5.90); RED CELL DISTRIBUTION WIDTH 13.6 % (11.6-17.2); WHITE BLOOD COUNT 4.9 TH/MM3 (4.0-11.0)
[2016-07-19 05:33] LABS: HEMO FLAGS AUTO DIFF
[2016-07-19] MEDS: PANTOPRAZOLE INJ 80 MG in SODIUM CHLORIDE 0.9% INJ 100 ML IV SCH ×3 (05:50→23:58)
[2016-07-19 05:53] LABS: ALKALINE PHOSPHATASE 67 U/L (45-117); ALT (GPT) 58 U/L (12-78); ANION GAP 11 MEQ/L (5-15); AST (GOT) 87 U/L (15-37); BICARBONATE 26.3 MEQ/L (21.0-32.0); BLOOD UREA NITROGEN 10 MG/DL (7-18); CHLORIDE 100 MEQ/L (98-107); GLOMERULAR FILTRATION RATE 77 ML/MIN (>89); POTASSIUM 3.9 MEQ/L (3.5-5.1); SODIUM (NA) 137 MEQ/L (136-145); TOTAL BILIRUBIN ADULT 0.7 MG/DL (0.2-1.0)
[2016-07-19] MEDS: metroNIDAZOLE 500 MG INJ 100 ML IV SCH ×3 (06:17→21:37)
[2016-07-19 07:05] LABS: PLATELET ESTIMATE SMEAR LOW (NORMAL); PLATELET MORPHOLOGY NORMAL (NORMAL); SCAN/DIFF AUTO DIFF CONFIRMED
[2016-07-19 08:00] VITALS: BP 176/91; PULSE 68; RESP 22; TEMP 98.2; O2SAT 99
[2016-07-19] MEDS: NICOTINE 21 MG/24 HR PATCH TD SCH (08:39)
[2016-07-19] MEDS: SODIUM CHLORIDE 0.9% FLUSH 5 ML FLUSH FLUSH SCH ×2 (09:00→21:00)
[2016-07-19] MEDS ORDERED: hydrALAZINE HCL 20 MG/ML VIAL IVP ONE (10:45)
[2016-07-19 12:00] VITALS: BP 166/88; PULSE 80; RESP 14; TEMP 98.1; O2SAT 100
--- NOTE | 2016-07-19 12:59 | HHI.PR ---
Subjective Remarks fu GI bleed, htn Patient denies cp/sob states bag does not have any blood because he is not moving BP noted to be elevated as per RN BP in the 190's systolic denies dizziness Objective Vitals Vital Signs Date Time Temp Pulse Resp B/P Pulse Ox O2 Delivery O2 Flow Rate FiO2 07/19/16 08:00 98.2 68 22 176/91 99 07/19/16 04:00 97.8 68 16 133/79 98 07/19/16 00:00 97.6 71 15 142/81 99 07/18/16 20:00 97.8 70 16 97/62 97 I/O 07/18/16 07/18/16 07/18/16 07/19/16 07/19/16 07/19/16 07:00 15:00 23:00 07:00 15:00 23:00 Intake Total 1682 ml 1293 ml Output Total 530 ml 900 ml 1300 ml Balance -530 ml 782 ml -7 ml Intake Oral 900 ml 200 ml IV Total 782 ml 1093 ml Output Urine Total 530 ml 600 ml 600 ml Stool Total 300 ml 700 ml # Voids 1 1 0 # Bowel Movements 0 Result Diagram: 07/19/16 0315 07/19/16 0315 Imaging Last Impressions Abdomen/Pelvis CT 07/18/16 0000 Signed Impressions: Service Date/Time: Monday, July 18, 2016 01:32 - CONCLUSION: 1. Stable CT scan of the abdomen and pelvis compared to 2014. No new or significant changes. No acute intra-abdominal or pelvic pathology. 2. Stable prominence of the left lobe of the liver. 3. Stable prominent Allie's pouch 4. Stable fatty infiltration of the liver. Jasson Moreno MD Objective Remarks GENERAL: Well-nourished, well-developed patient, resting comfortably. SKIN: Warm and dry. HEAD: Normocephalic, atraumatic. EYES: No scleral icterus. No injection or drainage. NECK: Supple, trachea midline. No JVD or lymphadenopathy. CARDIOVASCULAR: Regular rate and rhythm without murmurs, gallops, or rubs. RESPIRATORY: Breath sounds equal bilaterally. No accessory muscle use. GASTROINTESTINAL: Abdomen soft, nondistended. Patient has moderate tenderness on palpation on the right side of the abdomen. No rebound tenderness. No mass. Colostomy in place. MUSCULOSKELETAL: No cyanosis, or edema. BACK: Nontender without obvious deformity. No CVA tenderness. NEURO: No gross deficits. PSYCH: Mood and affect appropriate. Medications and IVs Current Medications Medications (Trade) Dose Ordered Sig/Vijay Route Start Time Stop Time Status Last Admin (Protonix Inj/NS Inj) 100 ml @ 10 mls/hr Q10H IV 07/17/16 23:30 07/19/16 05:50 (NS Flush) 2 ml UNSCH PRN FLUSH 07/18/16 03:45 (NS Flush) 2 ml BID FLUSH 07/18/16 09:00 07/18/16 21:45 (Tylenol) 650 mg Q4H PRN PO 07/18/16 03:45 (Tylenol) 650 mg Q6H PRN PO 07/18/16 03:45 (Narcan Inj) 0.4 mg UNSCH PRN IV 07/18/16 03:45 (Ativan) 1 mg Q4H PRN PO 07/18/16 03:45 (Ativan Inj) 1 mg Q4H PRN IV PUSH 07/18/16 03:45 07/19/16 08:13 (Ativan) 2 mg Q2H PRN PO 07/18/16 03:45 (Ativan Inj) 2 mg Q2H PRN IV PUSH 07/18/16 03:45 07/19/16 11:49 (Ativan Inj) 2 mg Q1H PRN IV PUSH 07/18/16 03:45 Lorazepam 2 mg 2 mg Q15M PRN IV PUSH 07/18/16 03:45 (KCl Inj/D5W-NS 1000 ml Inj) 1,015 ml @ 100 mls/hr Q10H9M IV 07/18/16 03:45 07/19/16 12:31 Nicotine 1 patch 1 patch DAILY TD 07/18/16 09:00 07/19/16 08:39 Metronidazole 100 ml @ 100 mls/hr Q8H IV 07/18/16 14:00 07/19/16 06:17 (Levaquin 750 Mg Premix Inj) 150 ml @ 100 mls/hr Q24H IV 07/19/16 01:00 07/19/16 00:35 (Apresoline Inj) 10 mg Q30M PRN IV PUSH 07/19/16 14:00 (Cordarone) 200 mg DAILY PO 07/19/16 14:00 A/P Problem List: (1) GI bleed ICD Code: K92.2 Status: Acute Plan: Gi bleed likely induced by etoh consumption. No further bleeding - continue protonix drip Hemoglobin stable. continue to monitor every 6 hours. GI consulted - for EGD/colonoscopy today (2) Hyponatremia ICD Code: E87.1 Status: Resolved Plan: Hypovolemic. Resolved after IV fluid administration. Continue to monitor BMP. (3) Atrial fibrillation ICD Code: I48.91 Status: Chronic Plan: Continue Amiodarone. Now sinus rythm - EKG reviewed by me showed NSR w 1st degree av block and QTC of 466. No ST - T changes (4) Alcohol withdrawal ICD Code: F10.239 Status: Acute Plan: Continue CIWA protocol. Better today. Tremors improved. no hallucinations. (5) ETOH abuse ICD Code: F10.10 Status: Chronic Plan: advised alcohol cessation. CM to assist. Continue Thiamine and folic acid. (6) EtOH dependence ICD Code: F10.20 Status: Chronic Plan: As above. (7) Transaminitis ICD Code: R74.0 Status: Acute Plan: GI following. Fu LFT's. AST 118 ---> 87 likely due to etoh. Hep profile pending. PA screen positive. (8) Anemia ICD Code: D64.9 Status: Acute Plan: acute blood loss anemia. due to GI bleed. Monitor H/H. Transfuse for hemoglobin less than 9 if active bleeding. (9) Uncontrolled hypertension ICD Code: I10 Status: Acute Plan: Antihypertensive medication - Carvedilol held due to Gi bleed. BP today 07/19 in the 170's systolic - Will place on hydralazine as needed for sbp > 160 until EGD performed then might considered resuming home bp medication. Assessment and Plan DVt proph - SCD's, no chemoprophylaxis due to GI bleed Discharge Planning Continue to monitor in the ICU Problem Qualifiers (1) GI bleed: Qualified Code: K92.2 - Gastrointestinal hemorrhage, unspecified gastrointestinal hemorrhage type (2) Atrial fibrillation: Qualified Code: I48.0 - Paroxysmal atrial fibrillation (3) Anemia: Qualified Code: D64.89 - Anemia due to other cause, not classified Gregor Ibrahim MD Jul 19, 2016 12:59
--- NOTE | 2016-07-19 13:03 | HHI.PR ---
Objective Vitals Vital Signs Date Time Temp Pulse Resp B/P Pulse Ox O2 Delivery O2 Flow Rate FiO2 07/19/16 08:00 98.2 68 22 176/91 99 07/19/16 04:00 97.8 68 16 133/79 98 07/19/16 00:00 97.6 71 15 142/81 99 07/18/16 20:00 97.8 70 16 97/62 97 I/O 07/18/16 07/18/16 07/18/16 07/19/16 07/19/16 07/19/16 07:00 15:00 23:00 07:00 15:00 23:00 Intake Total 1682 ml 1293 ml Output Total 530 ml 900 ml 1300 ml Balance -530 ml 782 ml -7 ml Intake Oral 900 ml 200 ml IV Total 782 ml 1093 ml Output Urine Total 530 ml 600 ml 600 ml Stool Total 300 ml 700 ml # Voids 1 1 0 # Bowel Movements 0 Result Diagram: 07/19/1631407/19/165 Gregor Ibrahim MD Jul 19, 2016 13:03
[2016-07-19 14:02] LABS: ANA SCREEN POS (NEG)
[2016-07-19] MEDS: AMIODARONE 200 MG TAB PO SCH (14:31)
--- NOTE | 2016-07-19 15:01 | EKG ---
Date Performed: 07/19/2016 Time Performed: 08:21:38 PTAGE: 56 years EKG: BASELINE ARTIFACT PRESENT. Sinus rhythm with 1st degree A-V block Prolonged QT interval Inferior T wave changes are nonspecific Generalized low QRS voltages Abnormal ECG NO PREVIOUS TRACING DOCTOR: Jamaal Johansen Interpretating Date/Time 07/19/2016 14:59:11
[2016-07-19] MEDS ORDERED: PROPOFOL 200 MG/20 ML AMP IV ONE (17:00)
[2016-07-19] MEDS ORDERED: MIDAZOLAM HCL 2 MG/2 ML VIAL IV ONE (17:00)
[2016-07-19] MEDS ORDERED: DO NOT ADM ANY ANTICOAGULANT DRUGS XX PRN (17:15)
[2016-07-19] MEDS ORDERED: MIDAZOLAM HCL 2 MG/2 ML VIAL ONE (17:30)
[2016-07-19 17:33] VITALS: BP 158/81; PULSE 77; RESP 16; TEMP 97.9; O2SAT 100
[2016-07-19] MEDS: LORazepam 1 MG TAB PO PRN (18:25)
[2016-07-19 20:00] VITALS: PULSE 79; RESP 20; TEMP 98; O2SAT 100
[2016-07-19] MEDS: LORazepam 2 MG TAB PO PRN (23:58)
[2016-07-20] VITALS: BP 154/83; PULSE 79; RESP 20; TEMP 98; O2SAT 100
[2016-07-20 04:00] VITALS: BP 181/93; PULSE 73; RESP 20; TEMP 97.8; O2SAT 98
[2016-07-20] MEDS: metroNIDAZOLE 500 MG INJ 100 ML IV SCH ×3 (05:46→20:31)
[2016-07-20] MEDS: hydrALAZINE HCL 20 MG/ML VIAL IV PUSH PRN ×3 (07:27→15:00)
[2016-07-20 08:00] VITALS: BP 170/90; PULSE 82; RESP 18; TEMP 97.6; O2SAT 99
[2016-07-20] MEDS: PANTOPRAZOLE INJ 80 MG in SODIUM CHLORIDE 0.9% INJ 100 ML IV SCH (08:13)
[2016-07-20] MEDS: NICOTINE 21 MG/24 HR PATCH TD SCH (08:58)
[2016-07-20] MEDS: AMIODARONE 200 MG TAB PO SCH (08:58)
[2016-07-20] MEDS: SODIUM CHLORIDE 0.9% FLUSH 5 ML FLUSH FLUSH SCH ×2 (09:00→20:32)
--- NOTE | 2016-07-20 09:42 | HHI.GIFU ---
Subjective Remarks Resting in bed. Tolerating diet. Denies bleeding- colostomy has dark green liquid stool. States he did have small amount of bleeding from his site/skin that mixed within the bag earlier, but no blood in the stool. No abdominal pain. States his colostomy output back to normal. (KebedeRadha Ritubrittaney JONES) Objective Vitals I&O Vital Signs Date Time Temp Pulse Resp B/P Pulse Ox O2 Delivery O2 Flow Rate FiO2 07/20/16 08:00 97.6 82 18 170/90 99 07/20/16 04:00 97.8 73 20 181/93 98 07/20/16 00:00 98.0 79 20 154/83 100 07/19/16 20:00 98.0 79 20 100 07/19/16 17:33 97.9 77 16 158/81 100 07/19/16 16:50 98.0 91 16 122/72 99 07/19/16 16:42 98.1 75 15 117/63 99 07/19/16 12:00 98.1 80 14 166/88 100 I/O 07/19/16 07/19/16 07/19/16 07/20/16 07/20/16 07/20/16 07:00 15:00 23:00 07:00 15:00 23:00 Intake Total 1293 ml 1006 ml 1108 ml 789 ml Output Total 1300 ml 2250 ml 1050 ml 950 ml Balance -7 ml -1244 ml 58 ml -161 ml Intake Oral 200 ml 240 ml IV Total 1093 ml 1006 ml 868 ml 789 ml Output Urine Total 600 ml 2050 ml 1000 ml 750 ml Stool Total 700 ml 200 ml 50 ml 200 ml # Voids 0 Imaging Last Impressions Abdomen/Pelvis CT 07/18/16 0000 Signed Impressions: Service Date/Time: Monday, July 18, 2016 01:32 - CONCLUSION: 1. Stable CT scan of the abdomen and pelvis compared to 2015. No new or significant changes. No acute intra-abdominal or pelvic pathology. 2. Stable prominence of the left lobe of the liver. 3. Stable prominent Allie's pouch 4. Stable fatty infiltration of the liver. Jasson Moreno MD Physical Exam HEENT: Normocephalic; atraumatic; no jaundice. CHEST: CTA CARDIAC: RRR ABDOMEN: Soft, nondistended, mild tenderness RLQ, no hepatosplenomegaly; bowel sounds are present in all four quadrants. Colostomy LLQ- dark green EXTREMITIES: No clubbing, cyanosis, or edema. SKIN: Normal; no rash; no jaundice. 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 Poor historian (Radha Kebede) Assessment and Plan Plan ASSESSMENT: - GIB. Pt reports dark output from his colostomy bag x 3 days. No hx of PUD. Does not take NSAIDS/ASA. He reports a hx of GI bleeding in the past with ASA use, but cannot really provide any details and denies having EGD. S/P EGD/Colonoscopy via colostomy, sigmoidoscopy (07/19/16)-----> gastritis, official report pending. No active bleeding. Dark green in colostomy. Tolerating diet. Mild RLQ tenderness. HH 10.5/30.7. - Anemia, acute blood loss. HH 10.5/30.7. - Abdominal pain. Abdomen/Pelvis CT (07/18/16)----> 1. Stable CT scan of the abdomen and pelvis compared to 2015. No new or significant changes. No acute intra-abdominal or pelvic pathology. 2. Stable prominence of the left lobe of the liver. 3. Stable prominent Allie's pouch 4. Stable fatty infiltration of the liver. Pt denied abdominal pain and then had significant tenderness in RLQ. No distention. IMPROVED. - Anorexia, Wt. Loss. Decreased appetite with 27 lb weight loss. - Diarrhea, Increased stool output. Stool studies pending. - Hx multiple hernia repairs/colostomy. Pt reports 7 abdominal hernia repairs, requiring colostomy for unknown reason at age 13. Last abdominal hernia repair was about [address] Reddy (pt unsure of spelling) in [place], [place]. - Elevated LFT. Pt with long etoh abuse hx. T. Bili 0.7, AST 87, Alt 58, aLK pHOSPH 67. Hepatitis negative, (+) PA, Titer pending, ASMA/AMA pending. - Hyponatremia. - Thrombocytopenia. - Afib, HTN, Hyperlipidemia, Bipolar d/o per primary. PLAN: - KEESHA - D/C Protonix Gtt - Protonix 40mg po daily - Await stool studies - Cont. Flagyl, Levaquin - Await PA titer, ASMA, AMA - Monitor labs - Obtain records from Dr. Kobi Aguilar in [facility] - Supportive care - Further recommendations to follow based on results of above - Pt seen and examined by Dr. Bray and myself and this note is written on her behalf ADDENDUM. Nurse reports now with maroon tinged liquid stool. Will get HH, stat bleeding scan (Radha Kebede) Physician Comments seen, examined agree with above bleeding scan negative possible bleeding from stoma we will ask ostomy nurse to see him, we will consult general surgery too as he is having some issues with the mesh too (Zulema Bray MD) Radha Kebede Jul 20, 2016 09:42 Zulema Bray MD Jul 20, 2016 18:34
[2016-07-20] MEDS: PANTOPRAZOLE SOD 40 MG DELAYED RELEASE TAB PO SCH (10:35)
[2016-07-20] MEDS: CARVEDILOL 3.125 MG TAB PO SCH ×2 (10:35→20:33)
[2016-07-20] MEDS: LORazepam 2 MG/ML VIAL IV PUSH PRN ×3 (11:06→20:31)
--- NOTE | 2016-07-20 11:16 | HHI.PR ---
Subjective Remarks patient is having severe tremors which he atributes to cold BP is is very elevated denies cp/sob RN reports blood in colostomy bag patient c/o tenderness upon palapation of abdomen denies fevers or chills denies hallucinations Objective Vitals Vital Signs Date Time Temp Pulse Resp B/P Pulse Ox O2 Delivery O2 Flow Rate FiO2 07/20/16 08:00 97.6 82 18 170/90 99 07/20/16 04:00 97.8 73 20 181/93 98 07/20/16 00:00 98.0 79 20 154/83 100 07/19/16 20:00 98.0 79 20 100 07/19/16 17:33 97.9 77 16 158/81 100 07/19/16 16:50 98.0 91 16 122/72 99 07/19/16 16:42 98.1 75 15 117/63 99 07/19/16 12:00 98.1 80 14 166/88 100 I/O 07/19/16 07/19/16 07/19/16 07/20/16 07/20/16 07/20/16 07:00 15:00 23:00 07:00 15:00 23:00 Intake Total 1293 ml 1006 ml 1108 ml 789 ml Output Total 1300 ml 2250 ml 1050 ml 950 ml Balance -7 ml -1244 ml 58 ml -161 ml Intake Oral 200 ml 240 ml IV Total 1093 ml 1006 ml 868 ml 789 ml Output Urine Total 600 ml 2050 ml 1000 ml 750 ml Stool Total 700 ml 200 ml 50 ml 200 ml # Voids 0 Result Diagram: 07/19/1631407/19/165 Imaging Last Impressions Abdomen/Pelvis CT 07/18/16 0000 Signed Impressions: Service Date/Time: Monday, July 18, 2016 01:32 - CONCLUSION: 1. Stable CT scan of the abdomen and pelvis compared to 2015. No new or significant changes. No acute intra-abdominal or pelvic pathology. 2. Stable prominence of the left lobe of the liver. 3. Stable prominent Allie's pouch 4. Stable fatty infiltration of the liver. Jasson Moreno MD Objective Remarks GENERAL: Well-nourished, well-developed patient, resting comfortably. SKIN: Warm and dry. HEAD: Normocephalic, atraumatic. EYES: No scleral icterus. No injection or drainage. NECK: Supple, trachea midline. No JVD or lymphadenopathy. CARDIOVASCULAR: Regular rate and rhythm without murmurs, gallops, or rubs. RESPIRATORY: Breath sounds equal bilaterally. No accessory muscle use. GASTROINTESTINAL: Abdomen soft, nondistended. Patient has moderate tenderness on palpation on the right side of the abdomen. No rebound tenderness. No mass. Colostomy in place with bloody fluid in it. MUSCULOSKELETAL: No cyanosis, or edema. BACK: Nontender without obvious deformity. No CVA tenderness. NEURO: No gross deficits. PSYCH: Mood and affect appropriate. Medications and IVs Current Medications Medications (Trade) Dose Ordered Sig/Vijay Route Start Time Stop Time Status Last Admin (NS Flush) 2 ml UNSCH PRN FLUSH 07/18/16 03:45 (NS Flush) 2 ml BID FLUSH 07/18/16 09:00 07/18/16 21:45 (Tylenol) 650 mg Q4H PRN PO 07/18/16 03:45 (Tylenol) 650 mg Q6H PRN PO 07/18/16 03:45 (Narcan Inj) 0.4 mg UNSCH PRN IV 07/18/16 03:45 (Ativan) 1 mg Q4H PRN PO 07/18/16 03:45 07/19/16 18:25 (Ativan Inj) 1 mg Q4H PRN IV PUSH 07/18/16 03:45 07/20/16 11:06 (Ativan) 2 mg Q2H PRN PO 07/18/16 03:45 07/19/16 23:58 (Ativan Inj) 2 mg Q2H PRN IV PUSH 07/18/16 03:45 07/19/16 11:49 (Ativan Inj) 2 mg Q1H PRN IV PUSH 07/18/16 03:45 07/19/16 21:02 (Ativan Inj) 2 mg Q15M PRN IV PUSH 07/18/16 03:45 Nicotine 1 patch 1 patch DAILY TD 07/18/16 09:00 07/20/16 08:58 Metronidazole 100 ml @ 100 mls/hr Q8H IV 07/18/16 14:00 07/20/16 05:46 (Levaquin 750 Mg Premix Inj) 150 ml @ 100 mls/hr Q24H IV 07/19/16 01:00 07/19/16 23:59 (Apresoline Inj) 10 mg Q30M PRN IV PUSH 07/19/16 14:00 07/20/16 07:27 (Cordarone) 200 mg DAILY PO 07/19/16 14:00 07/20/16 08:58 Miscellaneous Information ALL NURSING DEPARTME... UNSCH PRN XX 07/19/16 17:15 07/20/16 17:14 (Protonix) 40 mg DAILY PO 07/20/16 09:45 07/20/16 10:35 (Coreg) 3.125 mg BID PO 07/20/16 10:30 07/20/16 10:35 Urinary Catheter: Yes Assessment to: Continue Flores insert reason: Measure Accurate Output A/P Problem List: (1) GI bleed ICD Code: K92.2 Status: Acute (2) Hyponatremia ICD Code: E87.1 Status: Resolved (3) Atrial fibrillation ICD Code: I48.91 Status: Chronic (4) Alcohol withdrawal ICD Code: F10.239 Status: Acute (5) ETOH abuse ICD Code: F10.10 Status: Chronic (6) EtOH dependence ICD Code: F10.20 Status: Chronic (7) Transaminitis ICD Code: R74.0 Status: Acute (8) Anemia ICD Code: D64.9 Status: Acute (9) Uncontrolled hypertension ICD Code: I10 Status: Acute Assessment and Plan (1) GI bleed Plan: Gi bleed likely induced by etoh consumption. No further bleeding - continue protonix drip Hemoglobin stable. continue to monitor every 6 hours. sp EGD on 07/19 which showed gastritis. (2) Hyponatremia Plan: Hypovolemic. Resolved after IV fluid administration. Continue to monitor BMP. (3) Atrial fibrillation Plan: Continue Amiodarone. Now sinus rythm - EKG reviewed by me showed NSR w 1st degree av block and QTC of 466. No ST - T changes (4) Alcohol withdrawal Plan: Patient with more tremors, elevated blood pressure. Alcohol withdrawal worsening. continue to administer Benzodiazepines as per [facility] protocol. (5) ETOH abuse Plan: advised alcohol cessation. CM to assist. Continue Thiamine and folic acid. (6) EtOH dependence Plan: As above. (7) Transaminitis Plan: GI following. Fu LFT's. AST 118 ---> 87 likely due to etoh. Hep profile pending. PA screen positive. (8) Anemia Plan: acute blood loss anemia. due to GI bleed. Monitor H/H. Transfuse for hemoglobin less than 9 if active bleeding. (9) Uncontrolled hypertension Plan: Antihypertensive medication - Carvedilol held due to Gi bleed. BP today 07/19 in the 170's systolic - Will place on hydralazine as needed for sbp > 160 until EGD performed then might considered resuming home bp medication. 07/20 BP uncntrolled - resume Coreg and continue Hydralazine as needed. Will decrease the rate of fluids. Assessment and Plan DVt proph - SCD's, no chemoprophylaxis due to GI bleed Discharge Planning Continue to monitor in the ICU Problem Qualifiers (1) GI bleed: Qualified Code: K92.2 - Gastrointestinal hemorrhage, unspecified gastrointestinal hemorrhage type (2) Atrial fibrillation: Qualified Code: I48.0 - Paroxysmal atrial fibrillation (3) Anemia: Qualified Code: D64.89 - Anemia due to other cause, not classified Gregor Ibrahim MD Jul 20, 2016 11:16
[2016-07-20] MEDS: SODIUM CHLOR 0.9% 1000 ML INJ 1,000 ML IV SCH ×2 (11:28→20:34)
[2016-07-20 11:57] LABS: AUTOMATED NEUTROPHIL # 4.3 TH/MM3 (1.8-7.7); BASOPHIL % 0.3 % (0.0-2.0); EOSINOPHIL # 0.1 TH/MM3 (0-0.4); HEMATOCRIT 33.7 % (39.0-51.0); LYMPH % 16.6 % (9.0-44.0); MEAN CELL VOLUME 105.3 FL (80.0-100.0); MEAN CORPUSCULAR HEMOGLOBIN 35.3 PG (27.0-34.0); MEAN CORPUSCULAR HGB CONC 33.5 % (32.0-36.0); MONO % 10.3 % (0.0-8.0); NEUT % 71.8 % (16.0-70.0); PLATELET COUNT 74 TH/MM3 (150-450); RED CELL DISTRIBUTION WIDTH 13.8 % (11.6-17.2)
[2016-07-20 12:00] VITALS: BP 147/89; PULSE 89; RESP 18; TEMP 98.6; O2SAT 98
[2016-07-20 12:02] LABS: HEMO FLAGS AUTO DIFF
[2016-07-20 12:25] LABS: ALKALINE PHOSPHATASE 80 U/L (45-117); ALT (GPT) 79 U/L (12-78); ANION GAP 10 MEQ/L (5-15); AST (GOT) 151 U/L (15-37); BICARBONATE 22.7 MEQ/L (21.0-32.0); BLOOD UREA NITROGEN 6 MG/DL (7-18); CHLORIDE 102 MEQ/L (98-107); GLOMERULAR FILTRATION RATE 74 ML/MIN (>89); POTASSIUM 3.8 MEQ/L (3.5-5.1); SODIUM (NA) 135 MEQ/L (136-145); TOTAL BILIRUBIN ADULT 0.6 MG/DL (0.2-1.0)
[2016-07-20 12:46] LABS: SCAN/DIFF AUTO DIFF CONFIRMED
[2016-07-20 16:00] VITALS: BP 152/87; PULSE 90; RESP 20; TEMP 97.8; O2SAT 97
--- NOTE | 2016-07-20 16:43 | RADRPT ---
EXAM DATE/TIME: 07/20/2016 14:06 [place] COMPARISON: CT ABDOMEN & PELVIS W CONTRAST, July 18, 2016, 1:32. INDICATIONS : Blood in stool. DOSE: 20.2 mCi Tc99m Ultratag labeled red blood cells IV IMAGIN hrs MEDICAL HISTORY : Atrial fibrillation. SURGICAL HISTORY : Inguinal hernia repair. Colostomy. 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 ENCOUNTER: Initial ACUITY: 1 day PAIN SCALE: 1/10 LOCATION: Bilateral Abdomen. TECHNIQUE: Following the modified in vitro labeling of autologous red cells, dynamic continuous images were acqu ired for the specified interval. FINDINGS: BIODISTRIBUTION: There is a very good labeling of red cells without significant uptake in the gastric wall. There is good delineation of the blood pool of the spleen and abdominal vessels. BLEEDING: No episodes of active GI bleeding are observed during specified interval of continuous observation. CONCLUSION: 1. No active GI bleed identified. Kashmir Combs MD on July 20, 2016 at 16:40 Board Certified Radiologist. This report was verified electronically.
[2016-07-20] MEDS: LORazepam 2 MG TAB PO PRN (17:29)
[2016-07-20 17:36] LABS: HEMOGLOBIN A1a 1.6 %; HEMOGLOBIN A1b 1.4 %; HEMOGLOBIN Ao 85.3 %; HEMOGLOBIN F 0.3 %; HEMOGLOBIN LA1C 2.2 %; HEMOGLOBIN P3 3.4 %
[2016-07-20] MEDS ORDERED: DILTIAZEM HCL 25 MG/5 ML VIAL IV PUSH ONE (18:30)
[2016-07-20 20:00] VITALS: BP 77/52; PULSE 94; RESP 21; TEMP 97.5; O2SAT 98
[2016-07-21] VITALS (7 sets, daily range): BP systolic 93–154; BP diastolic 59–95; PULSE 81–120; RESP 18–19; TEMP 97.5–98; O2SAT 95–99
[2016-07-21] MEDS: LEVOFLOXACIN 750 MG PREMIX INJ 150 ML IV SCH ×2 (00:42→23:46)
[2016-07-21] MEDS: LORazepam 2 MG/ML VIAL IV PUSH PRN ×3 (00:42→06:54)
[2016-07-21] MEDS: CARVEDILOL 3.125 MG TAB PO SCH ×3 (03:07→20:10)
[2016-07-21] MEDS: metroNIDAZOLE 500 MG INJ 100 ML IV SCH ×3 (06:54→20:10)
[2016-07-21] MEDS: AMIODARONE 200 MG TAB PO SCH (09:41)
[2016-07-21] MEDS: NICOTINE 21 MG/24 HR PATCH TD SCH (09:41)
[2016-07-21] MEDS: SODIUM CHLORIDE 0.9% FLUSH 5 ML FLUSH FLUSH SCH ×2 (09:41→20:10)
[2016-07-21] MEDS: PANTOPRAZOLE SOD 40 MG DELAYED RELEASE TAB PO SCH (09:41)
[2016-07-21] MEDS: LORazepam 2 MG TAB PO PRN ×4 (10:16→21:35)
[2016-07-21] MEDS ORDERED: ALPRAZolam 0.5 MG TAB PO PRN (11:00)
[2016-07-21] MEDS: SODIUM CHLOR 0.9% 1000 ML INJ 1,000 ML IV SCH ×2 (14:13→20:10)
--- NOTE | 2016-07-21 14:28 | HHI.GIFU ---
Subjective Remarks Resting in bed. No further bleeding. No n/v. No abdominal pain. Tolerating diet. Bleeding scan negative. Light brown stool in bag. (Radha Kebede) Objective Vitals I&O Vital Signs Date Time Temp Pulse Resp B/P Pulse Ox O2 Delivery O2 Flow Rate FiO2 07/21/16 08:00 98.0 100 18 154/95 95 07/21/16 04:00 97.9 94 19 137/82 97 07/21/16 00:00 97.8 99 18 100/59 96 07/20/16 20:00 97.5 94 21 77/52 98 07/20/16 16:00 97.8 90 20 152/87 97 I/O 07/20/16 07/20/16 07/20/16 07/21/16 07/21/16 07/21/16 07:00 15:00 23:00 07:00 15:00 23:00 Intake Total 789 ml 1755 ml 232 ml 1040 ml Output Total 950 ml 3005 ml 400 ml 900 ml Balance -161 ml -1250 ml -168 ml 140 ml Intake Oral 700 ml IV Total 789 ml 1055 ml 232 ml 1040 ml Output Urine Total 750 ml 2750 ml 400 ml 900 ml Stool Total 200 ml 255 ml Laboratory Laboratory Tests Test 07/20/16 18:52 Hemoglobin 12.1 Date/Time Procedure Status Source Growth 07/20/16 09:45 Cryptosporidium Exam - Final Resulted Stool Stool NEGATIVE - NO CRYPTOSPORIDIUM ANTIGEN... 07/20/16 09:45 Stool Pus ([facility]) Resulted Stool Stool Pending 07/20/16 09:45 Giardia Antigen ([facility]) - Final Resulted Stool Stool NEGATIVE - NO GIARDIA ANTIGEN DETECTE... Imaging Last Impressions GI Bleed Scan Nuclear Medicine 07/20/16 0000 Signed Impressions: Service Date/Time: June 14:06 - CONCLUSION: 1. No active GI bleed identified. Kashmir Combs MD Abdomen/Pelvis CT 07/18/16 0000 Signed Impressions: Service Date/Time: Monday, July 18, 2016 01:32 - CONCLUSION: 1. Stable CT scan of the abdomen and pelvis compared to 2015. No new or significant changes. No acute intra-abdominal or pelvic pathology. 2. Stable prominence of the left lobe of the liver. 3. Stable prominent Allie's pouch 4. Stable fatty infiltration of the liver. Jasson Moreno MD Physical Exam HEENT: Normocephalic; atraumatic; no jaundice. CHEST: CTA CARDIAC: RRR ABDOMEN: Soft, nondistended, mild tenderness RLQ, no hepatosplenomegaly; bowel sounds are present in all four quadrants. Colostomy LLQ- light brown stool EXTREMITIES: No clubbing, cyanosis, or edema. SKIN: Normal; no rash; no jaundice. QUARRYING SPECIALIST: No focal deficits; alert and oriented times three, tremors. Poor historian (Radha Kebede) Assessment and Plan Plan ASSESSMENT: - GIB. Pt reports dark output from his colostomy bag x 3 days. No hx of PUD. Does not take NSAIDS/ASA. He reports a hx of GI bleeding in the past with ASA use, but cannot really provide any details and denies having EGD. S/P EGD/Colonoscopy via colostomy, sigmoidoscopy (07/19/16)-----> gastritis, official report pending. Pathology pending. Had some dark, maroon tinged liquid stool yesterday, but HH has remained stable and bleeding scan was negative. No active bleeding. Light brown stool in colostomy. Tolerating diet. Mild RLQ tenderness. HH 11.3/33.7. - Anemia, acute blood loss. HH 11.3/33.7 - Abdominal pain. Abdomen/Pelvis CT (07/18/16)----> 1. Stable CT scan of the abdomen and pelvis compared to 2015. No new or significant changes. No acute intra-abdominal or pelvic pathology. 2. Stable prominence of the left lobe of the liver. 3. Stable prominent Allie's pouch 4. Stable fatty infiltration of the liver. Pt denied abdominal pain and then had significant tenderness in RLQ. No distention. IMPROVED. - Anorexia, Wt. Loss. Decreased appetite with 27 lb weight loss. - Diarrhea, Increased stool output. Cryptosporidium negative, giardia negative, stool pus pending. - Hx multiple hernia repairs/colostomy. Pt reports 7 abdominal hernia repairs, requiring colostomy for unknown reason at age 13. Last abdominal hernia repair was about [address] Reddy (pt unsure of spelling) in [place], [place]. - Elevated LFT. Pt with long etoh abuse hx. T. Bili 0.6, AST 151, Alt 79, aLK pHOSPH 80. Hepatitis negative, (+) PA, Titer 1:80, diffuse pattern, ASMA negative AMA pending. - Hyponatremia. Na+ 135 - Thrombocytopenia. 74,000 - Afib, HTN, Hyperlipidemia, Bipolar d/o per primary. PLAN: - KEESHA - Protonix 40mg po daily - Cont. Flagyl, Levaquin - Await AMA - Monitor labs - Obtain records from Dr. Kobi Aguilar in [facility] [place] - Supportive care - Further recommendations to follow based on results of above - Pt seen and examined by Dr. Bray and myself and this note is written on her behalf (Radha Kebede) Radha Kebede Jul 21, 2016 14:28 Zulema Bray MD Jul 21, 2016 21:47
--- NOTE | 2016-07-21 16:36 | EKG ---
Date Performed: 07/20/2016 Time Performed: 18:04:40 PTAGE: 56 years EKG: Atrial fibrillation with rapid ventricular response. Poor R wave progression - probable nor mal variant Inferior ST-T changes are nonspecific Low QRS voltages in limb leads Abnormal ECG PREVIOUS TRACING : 07/19/2016 08.21 Compared to the previous tracing, afib with RVR is new. DOCTOR: Cody Mueller Interpretating Date/Time 07/21/2016 16:34:49
--- NOTE | 2016-07-21 17:54 | HHI.PR ---
Subjective Remarks Deferred entry patient seen at 9 am Called by RN since patient wanted to leave AMA patient states that feels anxious and wants to go home since all studies negative as per RN patient with significant withdrawal symptoms and getiing high doses of Ativan patient denies cp/sob and denies further bleeding denies nausea or vomiting denies visual or auditory hallucinations Objective Vitals Vital Signs Date Time Temp Pulse Resp B/P Pulse Ox O2 Delivery O2 Flow Rate FiO2 07/21/16 16:00 98.0 120 18 124/91 99 07/21/16 12:00 97.9 81 18 93/62 95 07/21/16 08:00 98.0 100 18 154/95 95 07/21/16 04:00 97.9 94 19 137/82 97 07/21/16 00:00 97.8 99 18 100/59 96 07/20/16 20:00 97.5 94 21 77/52 98 I/O 07/20/16 07/20/16 07/20/16 07/21/16 07/21/16 07/21/16 07:00 15:00 23:00 07:00 15:00 23:00 Intake Total 789 ml 1755 ml 232 ml 1040 ml 1100 ml Output Total 950 ml 3005 ml 400 ml 900 ml 750 ml Balance -161 ml -1250 ml -168 ml 140 ml 350 ml Intake Oral 700 ml 500 ml IV Total 789 ml 1055 ml 232 ml 1040 ml 600 ml Output Urine Total 750 ml 2750 ml 400 ml 900 ml 450 ml Stool Total 200 ml 255 ml 300 ml Result Diagram: 07/20/16 1852 07/20/16 1128 Imaging Last Impressions GI Bleed Scan Nuclear Medicine 07/20/16 0000 Signed Impressions: Service Date/Time: June 14:06 - CONCLUSION: 1. No active GI bleed identified. Kashmir Combs MD Abdomen/Pelvis CT 07/18/16 0000 Signed Impressions: Service Date/Time: Monday, July 18, 2016 01:32 - CONCLUSION: 1. Stable CT scan of the abdomen and pelvis compared to 2015. No new or significant changes. No acute intra-abdominal or pelvic pathology. 2. Stable prominence of the left lobe of the liver. 3. Stable prominent Allie's pouch 4. Stable fatty infiltration of the liver. Jasson Moreno MD Objective Remarks GENERAL: Well-nourished, well-developed patient, resting comfortably. SKIN: Warm and dry. HEAD: Normocephalic, atraumatic. EYES: No scleral icterus. No injection or drainage. NECK: Supple, trachea midline. No JVD or lymphadenopathy. CARDIOVASCULAR: Regular rate and rhythm without murmurs, gallops, or rubs. RESPIRATORY: Breath sounds equal bilaterally. No accessory muscle use. GASTROINTESTINAL: Abdomen soft, nondistended. Patient has moderate tenderness on palpation on the right side of the abdomen. No rebound tenderness. No mass. Colostomy in place with bloody fluid in it. MUSCULOSKELETAL: No cyanosis, or edema. BACK: Nontender without obvious deformity. No CVA tenderness. NEURO: No gross deficits. PSYCH: Mood and affect appropriate. Medications and IVs Current Medications Medications (Trade) Dose Ordered Sig/Vijay Route Start Time Stop Time Status Last Admin (NS Flush) 2 ml UNSCH PRN FLUSH 07/18/16 03:45 (NS Flush) 2 ml BID FLUSH 07/18/16 09:00 07/21/16 09:41 (Tylenol) 650 mg Q4H PRN PO 07/18/16 03:45 (Tylenol) 650 mg Q6H PRN PO 07/18/16 03:45 (Narcan Inj) 0.4 mg UNSCH PRN IV 07/18/16 03:45 (Ativan) 1 mg Q4H PRN PO 07/18/16 03:45 07/19/16 18:25 (Ativan Inj) 1 mg Q4H PRN IV PUSH 07/18/16 03:45 07/20/16 14:00 (Ativan) 2 mg Q2H PRN PO 07/18/16 03:45 07/21/16 16:48 (Ativan Inj) 2 mg Q2H PRN IV PUSH 07/18/16 03:45 07/21/16 06:54 (Ativan Inj) 2 mg Q1H PRN IV PUSH 07/18/16 03:45 07/19/16 21:02 (Ativan Inj) 2 mg Q15M PRN IV PUSH 07/18/16 03:45 Nicotine 1 patch 1 patch DAILY TD 07/18/16 09:00 07/21/16 09:41 Metronidazole 100 ml @ 100 mls/hr Q8H IV 07/18/16 14:00 07/21/16 14:12 (Levaquin 750 Mg Premix Inj) 150 ml @ 100 mls/hr Q24H IV 07/19/16 01:00 07/21/16 00:42 (Apresoline Inj) 10 mg Q30M PRN IV PUSH 07/19/16 14:00 07/20/16 15:00 (Cordarone) 200 mg DAILY PO 07/19/16 14:00 07/21/16 09:41 (Protonix) 40 mg DAILY PO 07/20/16 09:45 07/21/16 09:41 Carvedilol 3.125 mg 3.125 mg BID PO 07/20/16 10:30 07/21/16 09:41 (NS 1000 ml Inj) 1,000 ml @ 84 mls/hr [id number] IV 07/20/16 11:00 07/21/16 14:13 (Xanax) 0.5 mg Q8H PRN PO 07/21/16 11:00 A/P Problem List: (1) GI bleed ICD Code: K92.2 Status: Acute (2) Hyponatremia ICD Code: E87.1 Status: Resolved (3) Atrial fibrillation ICD Code: I48.91 Status: Chronic (4) Alcohol withdrawal ICD Code: F10.239 Status: Acute (5) ETOH abuse ICD Code: F10.10 Status: Chronic (6) EtOH dependence ICD Code: F10.20 Status: Chronic (7) Transaminitis ICD Code: R74.0 Status: Acute (8) Anemia ICD Code: D64.9 Status: Acute (9) Uncontrolled hypertension ICD Code: I10 Status: Acute Assessment and Plan (1) GI bleed Plan: Gi bleed likely induced by etoh consumption. No further bleeding -treated initially with Protonix drip which has been discontinued. Hemoglobin stable. Continue to monitor. sp EGD on 07/19 which showed gastritis. Continue Protonix. (2) Hyponatremia Plan: Hypovolemic. Resolved after IV fluid administration. Continue to monitor BMP. (3) Atrial fibrillation Plan: Continue Amiodarone. Now sinus rythm - EKG reviewed by me showed NSR w 1st degree av block and QTC of 466. No ST - T changes (4) Alcohol withdrawal Plan: Patient with more tremors, elevated blood pressure. Alcohol withdrawal worsening. continue to administer Benzodiazepines as per [facility] protocol. 07/21 patient requiring frequent and elevated doses of IV Ativan to control his withdrawal. Patient wanted to sign out AMA however after talking to him he desisted of the idea and agreed to stay. Continue [facility] protocol. (5) ETOH abuse Plan: advised alcohol cessation. CM to assist. Continue Thiamine and folic acid. (6) EtOH dependence Plan: As above. (7) Transaminitis Plan: GI following. Fu LFT's. AST 118 ---> 87 likely due to etoh. Hep profile pending. PA screen positive. (8) Anemia Plan: acute blood loss anemia. due to GI bleed. Monitor H/H. Transfuse for hemoglobin less than 9 if active bleeding. (9) Uncontrolled hypertension Plan: Antihypertensive medication - Carvedilol held due to Gi bleed. BP today 07/19 in the 170's systolic - Will place on hydralazine as needed for sbp > 160 until EGD performed then might considered resuming home bp medication. 07/20 BP uncntrolled - resume Coreg and continue Hydralazine as needed. Will decrease the rate of fluids. 07/21 blood pressure more stable. Continue IV fluids for now. Continue Coreg and hydralazine as needed. Assessment and Plan DVt proph - SCD's, no chemoprophylaxis due to GI bleed Discharge Planning Continue to monitor in the ICU Problem Qualifiers (1) GI bleed: Qualified Code: K92.2 - Gastrointestinal hemorrhage, unspecified gastrointestinal hemorrhage type (2) Atrial fibrillation: Qualified Code: I48.0 - Paroxysmal atrial fibrillation (3) Anemia: Qualified Code: D64.89 - Anemia due to other cause, not classified Gregor Ibrahim MD Jul 21, 2016 17:54
[2016-07-21 18:11] LABS: HEMATOCRIT 34.3 % (39.0-51.0); MEAN CELL VOLUME 103.7 FL (80.0-100.0); MEAN CORPUSCULAR HEMOGLOBIN 35.4 PG (27.0-34.0); MEAN CORPUSCULAR HGB CONC 34.2 % (32.0-36.0); PLATELET COUNT 108 TH/MM3 (150-450); RED BLOOD COUNT 3.31 MIL/MM3 (4.50-5.90); REVIEW FLAG FINAL; WHITE BLOOD COUNT 9.3 TH/MM3 (4.0-11.0)
[2016-07-21 20:04] LABS: BICARBONATE 23.3 MEQ/L (21.0-32.0); POTASSIUM 3.7 MEQ/L (3.5-5.1)
[2016-07-21] MEDS: LORazepam 1 MG TAB PO PRN (20:10)
[2016-07-21 23:58] LABS: MITOCHONDRIAL ABS 37.2 U (())
[2016-07-22] VITALS: BP 127/94; PULSE 95; RESP 21; TEMP 98.5; O2SAT 96
[2016-07-22] MEDS: LORazepam 1 MG TAB PO PRN (01:35)
[2016-07-22 02:00] VITALS: PULSE 81
[2016-07-22 04:00] VITALS: BP 133/92; PULSE 77; RESP 18; TEMP 98.4; O2SAT 96
[2016-07-22] MEDS: LORazepam 2 MG TAB PO PRN (04:26)
[2016-07-22] MEDS: metroNIDAZOLE 500 MG INJ 100 ML IV SCH (04:35)
[2016-07-22 05:13] LABS: HEMATOCRIT 33.2 % (39.0-51.0); MEAN CELL VOLUME 106.4 FL (80.0-100.0); MEAN CORPUSCULAR HEMOGLOBIN 36.1 PG (27.0-34.0); MEAN CORPUSCULAR HGB CONC 33.9 % (32.0-36.0); PLATELET COUNT 80 TH/MM3 (150-450); RED BLOOD COUNT 3.12 MIL/MM3 (4.50-5.90); RED CELL DISTRIBUTION WIDTH 14.4 % (11.6-17.2); WHITE BLOOD COUNT 6.3 TH/MM3 (4.0-11.0)
[2016-07-22 05:16] LABS: REVIEW FLAG FINAL
[2016-07-22 05:33] LABS: BICARBONATE 24.1 MEQ/L (21.0-32.0); POTASSIUM 3.4 MEQ/L (3.5-5.1)
[2016-07-22 06:00] VITALS: PULSE 69
[2016-07-22] MEDS ORDERED: POTASSIUM CHLORIDE 20 MEQ PWD PACKET PO ONE (06:45)
[2016-07-22 08:00] VITALS: PULSE 75
[2016-07-22] MEDS: CARVEDILOL 3.125 MG TAB PO SCH (08:35)
[2016-07-22] MEDS: PANTOPRAZOLE SOD 40 MG DELAYED RELEASE TAB PO SCH (08:35)
[2016-07-22] MEDS: AMIODARONE 200 MG TAB PO SCH (08:35)
[2016-07-22] MEDS: NICOTINE 21 MG/24 HR PATCH TD SCH (08:35)
[2016-07-22] MEDS: SODIUM CHLORIDE 0.9% FLUSH 5 ML FLUSH FLUSH SCH (08:36)
--- NOTE | 2016-07-22 10:33 | HHI.DCPOC ---
Discharge Care Plan Diagnosis: (1) Atrial fibrillation (2) Hyponatremia (3) GI bleed (4) Anemia (5) Alcohol withdrawal (6) ETOH abuse (7) Transaminitis (8) EtOH dependence (9) Uncontrolled hypertension Goals to Promote Your Health * To prevent worsening of your condition and complications * To maintain your health at the optimal level Directions to Meet Your Goals Take your medications as prescribed Follow your dietary instruction Follow activity as directed Keep your appointments as scheduled Take your immunizations and boosters as scheduled If your symptoms worsen call your PCP, if no PCP go to Urgent Care Center or Emergency Room Smoking is Dangerous to Your Health. Avoid second hand smoke Call the 24-hour hour crisis hotline for domestic abuse at Gregor Ibrahim MD Jul 22, 2016 10:33
[2016-07-22] MEDS ORDERED: METR500T10 PO (10:44)
[2016-07-22] MEDS ORDERED: LEVA500T PO (10:44)
[2016-07-22] MEDS ORDERED: CHLO5CAP3 PO (10:44)
--- NOTE | 2016-07-22 10:50 | HHI.DS ---
Discharge Summary Admission Date Jul 18, 2016 at 01:06 Discharge Date: Jul 22, 2016 Admitting Diagnosis GI bleed. Hyponatremia. (1) GI bleed ICD Code: K92.2 Diagnosis: Principal (2) Hyponatremia ICD Code: E87.1 Diagnosis: Principal (3) Atrial fibrillation ICD Code: I48.91 Diagnosis: Principal (4) Alcohol withdrawal ICD Code: F10.239 Diagnosis: Principal (5) ETOH abuse ICD Code: F10.10 Diagnosis: Principal (6) EtOH dependence ICD Code: F10.20 Diagnosis: Secondary (7) Transaminitis ICD Code: R74.0 Diagnosis: Principal (8) Anemia ICD Code: D64.9 Diagnosis: Secondary (9) Uncontrolled hypertension ICD Code: I10 Diagnosis: Principal Procedures sp EGD with biopsy, colonoscopy and Flexible sigmoidoscopy via ostomy Brief History - From Admission The patient is a 56-year-old male with a past medical history of a defect with weakened abdominal muscles requiring ostomy placement who is presenting to the hospital with abdominal pain and excessive bloody output from the ostomy. The patient says that he noticed bloody output over the past 3 days. He says he has had to empty the ostomy bag much more frequently than normal. He has had decreased energy and poor balance over the last few days as well. He says he has been using a wheelchair recently. He says over the past couple of weeks he has had right-sided abdominal pain upon palpation. He endorses a poor appetite. He says he eats once a day. He does drink up to 10 beers daily. He says he has had the shakes before but has never had an alcohol withdrawal seizure. He also mentions that he has chronic numbness and tingling in his legs and feet. He says he has been following up with the neurologist and has had MRIs but does not know the results of those tests are. The patient says that he does not take any blood thinners including aspirin for his atrial fibrillation. CBC/BMP: 07/22/16 0403 07/22/16 0403 Significant Findings Laboratory Tests Test 1/07/20/16 07/21/16 07/21/16 11:28 18:52 18:03 19:08 Red Blood Count 3.20 MIL/MM3 3.31 MIL/MM3 (4.50-5.90) (4.50-5.90) Hemoglobin 11.3 GM/DL 12.1 GM/DL 11.7 GM/DL (13.0-17.0) (13.0-17.0) (13.0-17.0) Hematocrit 33.7 % 34.3 % (39.0-51.0) (39.0-51.0) Mean Corpuscular Volume 105.3 FL 103.7 FL (80.0-100.0) (80.0-100.0) Mean Corpuscular Hemoglobin 35.3 PG 35.4 PG (27.0-34.0) (27.0-34.0) Platelet Count 74 TH/MM3 108 TH/MM3 (150-450) (150-450) Neutrophils (%) (Auto) 71.8 % (16.0-70.0) Monocytes (%) (Auto) 10.3 % (0.0-8.0) Sodium Level 135 MEQ/L (136-145) Blood Urea Nitrogen 6 MG/DL (7-18) Estimat Glomerular Filtration 74 ML/MIN (>89) 47 ML/MIN (>89) Rate Random Glucose 131 MG/DL 117 MG/DL (74-106) (74-106) Aspartate Amino Transf 151 U/L (15-37) (AST/SGOT) Alanine Aminotransferase 79 U/L (12-78) (ALT/SGPT) Creatinine 1.53 MG/DL (0.60-1.30) Test 07/22/16 04:03 Red Blood Count 3.12 MIL/MM3 (4.50-5.90) Hemoglobin 11.3 GM/DL (13.0-17.0) Hematocrit 33.2 % (39.0-51.0) Mean Corpuscular Volume 106.4 FL (80.0-100.0) Mean Corpuscular Hemoglobin 36.1 PG (27.0-34.0) Platelet Count 80 TH/MM3 (150-450) Potassium Level 3.4 MEQ/L (3.5-5.1) Estimat Glomerular Filtration 59 ML/MIN (>89) Rate Imaging Last Impressions GI Bleed Scan Nuclear Medicine 07/20/16 0000 Signed Impressions: Service Date/Time: June 14:06 - CONCLUSION: 1. No active GI bleed identified. Kashmir Combs MD Abdomen/Pelvis CT 07/18/16 0000 Signed Impressions: Service Date/Time: Monday, July 18, 2016 01:32 - CONCLUSION: 1. Stable CT scan of the abdomen and pelvis compared to 2015. No new or significant changes. No acute intra-abdominal or pelvic pathology. 2. Stable prominence of the left lobe of the liver. 3. Stable prominent Allie's pouch 4. Stable fatty infiltration of the liver. Jasson Moreno MD PE at Discharge GENERAL: Well-nourished, well-developed patient, resting comfortably. SKIN: Warm and dry. HEAD: Normocephalic, atraumatic. EYES: No scleral icterus. No injection or drainage. NECK: Supple, trachea midline. No JVD or lymphadenopathy. CARDIOVASCULAR: Regular rate and rhythm without murmurs, gallops, or rubs. RESPIRATORY: Breath sounds equal bilaterally. No accessory muscle use. GASTROINTESTINAL: Abdomen soft, nondistended. Patient has moderate tenderness on palpation on the right side of the abdomen. No rebound tenderness. No mass. Colostomy in place with bloody fluid in it. MUSCULOSKELETAL: No cyanosis, or edema. BACK: Nontender without obvious deformity. No CVA tenderness. NEURO: No gross deficits. PSYCH: Mood and affect appropriate. Pt update on day of discharge etoh withdrawal symptoms improved. Patient not requiring Benzodiazepines. Hospital Course (1) GI bleed Gi bleed likely induced by etoh consumption. No further bleeding -treated initially with Protonix drip which has been discontinued. Hemoglobin stable. Continue to monitor. sp EGD on 07/19 which showed gastritis. Continue Protonix. Fu pathology. (2) Hyponatremia Hypovolemic. Resolved after IV fluid administration. Continue to monitor BMP. (3) Atrial fibrillation Continue Amiodarone. Now sinus rythm - EKG reviewed by me showed NSR w 1st degree av block and QTC of 466. No ST - T changes (4) Alcohol withdrawal Patient with more tremors, elevated blood pressure. Alcohol withdrawal treated with CIWA protocol and Benzodiazepine.w 07/21 patient requiring frequent and elevated doses of IV Ativan to control his withdrawal. Patient wanted to sign out AMA however after talking to him he desisted of the idea and agreed to stay. 07/22 Wtoh withdrawal much improved. Patient not requiring IV Benzodiazepines. (5) ETOH abuse advised alcohol cessation. CM to assist. Continue Thiamine and folic acid. (6) EtOH dependence Plan: As above. (7) Transaminitis Plan: GI following. Fu LFT's. AST 118 ---> 87 likely due to etoh. Hep profile pending. PA screen positive. (8) Anemia Plan: acute blood loss anemia. due to GI bleed. Monitor H/H. Transfuse for hemoglobin less than 9 if active bleeding. (9) Uncontrolled hypertension Plan: Antihypertensive medication - Carvedilol held due to Gi bleed. BP today 07/19 in the 170's systolic - Will place on hydralazine as needed for sbp > 160 until EGD performed then might considered resuming home bp medication. 07/20 BP uncntrolled - resume Coreg and continue Hydralazine as needed. Will decrease the rate of fluids. 07/21 blood pressure more stable. Continue IV fluids for now. Continue Coreg and hydralazine as needed. DVt proph - SCD's, no chemoprophylaxis due to GI bleed Pt Condition on Discharge: Stable Discharge Disposition: Disch w/ Home Health Serv Discharge Time: > 30 minutes Discharge Instructions DIET: Follow Instructions for: Heart Healthy Diet Activities you can perform: See Additionl Instruction Activities to Avoid: Prolonged Standing, Strenuous Activity Other Activity Instructions: out of bed with asistance Follow up Referrals: PCP Follow-up - 2-3 Days New Medications: Chlordiazepoxide (Chlordiazepoxide) 5 Mg Cap 5 MG PO TID PRN Anxiety #10 Ref 0 CAP Levofloxacin (Levaquin) 500 Mg Tab 500 MG PO DAILY Infection #3 Ref 0 TAB Metronidazole (Metronidazole) 500 Mg Tab 500 MG PO TID Infection #3 Ref 0 TAB Continued Medications: Amiodarone (Amiodarone) 200 Mg Tab 200 MG PO DAILY Regulate Heart Beat #30 Ref 0 TAB Carvedilol (Coreg) 3.125 Mg Tab 3.125 MG PO BID #60 Ref 0 TAB Gregor Ibrahim MD Jul 22, 2016 10:50
--- NOTE | 2016-07-22 11:23 | HHI.FF ---
Face to Face Verification Diagnosis: (1) ETOH abuse (2) Atrial fibrillation (3) Alcohol withdrawal (4) GI bleed (5) Transaminitis (6) Uncontrolled hypertension Physical Therapy Order: Improve ambulation, Strength and gait training Home Health Nursing Order: Medical education Signs/symptoms of disease process Nursing assessment with vital signs I have seen patient Gregory Grubbs on 07/22/16. My clinical findings support the need for the requested home health care services because: Deconditioned w/ increased weakness Need for psychosocial assistance Impaired cognition/judgement High risk of falls I certify that my clinical findings support that this patient is homebound because: Unsafe to leave home unassisted Need for psychosocial assistance Unable to use public transportation Gregor Ibrahim MD Jul 22, 2016 11:23
--- NOTE | 2016-07-22 11:44 | MB ---
cc: TIMMY GALICIA DATE OF CONSULTATION 07/21/[address] Bray of gastroenterology. REASON FOR CONSULTATION GI bleed. HISTORY OF PRESENT ILLNESS The patient is a 56-year-old male who has a complicated past surgical history to include multiple abdominal surgeries and end colostomy placement. The patient was admitted to the hospital on 07/18/2016 for bleeding from his stoma as well as hyponatremia. The patient underwent extensive workup including upper and lower endoscopies with no mention of any bleeding source. The patient did continue to have some blood in his ostomy bag and general surgery is consulted for evaluation of this patient's stoma. The patient states that the stoma was replaced in the past by a surgeon in [place] and he has had no other problems with that. He has never had previous GI bleeding or problems with his stoma. REVIEW OF SYSTEMS A 12-point review of systems is completed with the patient and is negative except for the pertinent positives mentioned above in the history of present illness. PAST SURGICAL HISTORY Hernia repair ventral times five with multiple colostomy relocations. Appendectomy. Fistula repair. Facial surgery. PAST MEDICAL HISTORY Atrial fibrillation, hypertension, hyperlipidemia, bipolar, history of alcohol abuse. ALLERGIES NARCOTICS. MEDICATIONS Reviewed. There is no anticoagulants currently as an inpatient. FAMILY HISTORY Noncontributory. SOCIAL HISTORY The patient does smoke cigarettes and does drink alcohol, denies illicit drug use. PHYSICAL EXAMINATION VITAL SIGNS: Blood pressure 154/95, heart rate 100, temperature 98.0 degrees. Patient is a well-developed, well-nourished male in no acute distress. HEENT: Head is normocephalic, atraumatic. Pupils are round and reactive and accommodating to light. Sclerae is anicteric. LUNGS: Breath sounds present bilaterally. Nonlabored breathing pattern. HEART: Heart regular rate and rhythm. ABDOMEN: Abdomen is soft, nondistended, nontender to palpation, no organomegaly. He has a midline scar without obvious hernia. He has a stoma in the left lower quadrant without obvious parastomal herniation. His stoma is well-established, protrudes appropriately and appears healthy. He does have a small ulcer on the medial aspect of the mucosa likely relates to ostomy appliance placement. We replaced ostomy appliance with a more appropriate fit during the examination. \ EXTREMITIES: Trace edema. NEUROLOGIC: The patient is awake, alert, appropriate and oriented times four, nonfocal peripheral exam. Cranial II-XII are grossly intact. LABORATORY FINDINGS Hemoglobin 11.7. White blood cell count 9.3, platelet is 108. IMAGING STUDIES GI bleeding scan shows no active GI bleed. ASSESSMENT/PLAN The patient is a 56-year-old male with history of GI bleed and mild anemia with colostomy stoma and multiple abdominal surgeries. The patient did have small ulcer of the medial aspect of his stoma which was not actively bleeding at this time though was likely did have some mild bleed in the recent past that may have presented as a GI bleed possibly. This is a common occurrence and could be a coincidence to have a small stomal irritation with a secondary source of bleeding. I agree with workup to ensure there is no bleeding in the internal GI tract. I did redress the patient's stoma with some more appropriate sized appliance to avoid ulceration on the medial aspect of his mucosa of his stoma. I did educate the patient about this as well as the nurse who will discuss this with the patients as well. No further surgical intervention required. He is going to follow up with the surgeon on a p.r.n. basis. Thank you very much for this consultation. We will sign off. Please call us if we can be of any further assistance. Timmy Galicia MD AWG/ANNETTE /9:34 PM /11:21 AM DEBORAH
--- NOTE | 2016-07-25 18:03 | MR ---
cc: DALTON DANG M.D., DOMINGUEZ DATE: 07/19/2016 DATE OF : [address] Paolo Bang TYPE OF PROCEDURE 1. Upper endoscopy with biopsy. 2. Colonoscopy is to the colostomy 3. flexible sigmoidoscopy The risks, benefits and indications and limitations of the above procedure were explained to the patient and the patient was informed about the risk of bleeding, perforation, over sedation, allergic reaction to the medication, missed lesion or failed procedure. UPPER ENDOSCOPY PROCEDURE The patient was placed in the left lateral decubitus and after the patient was fully sedated by Anesthesia upper endoscope was gently inserted into the oral cavity and under direct visualization the esophagus was intubated then the scope was gently inserted into the stomach, advanced to the duodenum up to the second portion. Then the scope was slowly withdrawn and the mucosa was fully examined including color, texture, anatomy and motility. In the fundus retroflexion was performed then the scope was withdrawn and procedure terminated. He tolerated procedure well with no immediate complications. FINDINGS Gastritis in the antrum a biopsy was performed, otherwise normal upper endoscopy. COLONOSCOPY VIA COLOSTOMY: While the patient was still sedated she was placed in supine position and the scope was introduced through the colostomy and advanced to the cecum, a colostomy was seen in the descending colon The scope was slowly withdrawn and the mucosa was fully examined including color, texture, anatomy and motility. FINDINGS Normal colonoscopy via colostomy up to the cecum. 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 A small amount of bleed was noted after the procedure was terminated from the chronic anal fissure, pressure was applied, Aggressive washing was done, no further bleeding. RECOMMENDATIONS 1. Advance diet. 2. Avoid alcohol and hepatotoxins 3. If stable may discharge home. MD TRESSA Lutz/bree /4:51 PM /5:56 PM [facility]
== END 2016-07-22 11:30 | disposition home health service (06) | DRG 378 ==
LOC: NEPA 21:57 → NEDA 07-18 01:06 → HIMW 07-18 14:20
PROVIDERS: ADMIT Hospitalist; ATTEND Hospitalist
PROC: 0DB68ZX Excision of Stomach, Via Natural or Artificial Opening Endoscopic, Diagnostic (ICD-10-PCS; principal; 2016-07-19 15:45)
PROC: 0DJD8ZZ Inspection of Lower Intestinal Tract, Via Natural or Artificial Opening Endoscopic (ICD-10-PCS; 2016-07-19 15:45)
DX: K92.2 Gastrointestinal hemorrhage, unspecified (principal); E87.1 Hypo-osmolality and hyponatremia; K76.0 Fatty (change of) liver, not elsewhere classified; D69.6 Thrombocytopenia, unspecified; K94.09 Other complications of colostomy; I48.0 Paroxysmal atrial fibrillation; I10 Essential (primary) hypertension; E86.1 Hypovolemia; F10.239 Alcohol dependence with withdrawal, unspecified; D62 Acute posthemorrhagic anemia; R63.0 Anorexia; K60.1 Chronic anal fissure; F31.9 Bipolar disorder, unspecified; F17.210 Nicotine dependence, cigarettes, uncomplicated; R20.0 Anesthesia of skin; E78.5 Hyperlipidemia, unspecified; E87.6 Hypokalemia; K21.9 Gastro-esophageal reflux disease without esophagitis; K29.70 Gastritis, unspecified, without bleeding; I44.0 Atrioventricular block, first degree; R74.0 Nonspecific elevation of levels of transaminase and lactic acid dehydrogenase [LDH]
CPT/HCPCS: 74177; 76937; 78278; 80048; 80053; 80074; 83036; 83520; 83690; 83735; 84100; 85018; 85025; 85027; 85610; 85730; 86038; 86039; 86256; 86850; 86900; 86901; 87205; 87328; 87329; 87641; 88305; 88312; 93005; 96365; A9560; C9113; J0360; J1956; J2060; J2250; J3480; J7030; J7042; Q9967

== ENCOUNTER 2016-10-16 16:30 | Inpatient (IN) | payer OTHER ==
[~2016-10-16 16:30] MED LIST changes: -AEROMIS4 INH; +AMIO200T PO; +CARV3.125 PO; +CHLO5CAP3 PO; +LEVA500T PO; +METR500T10 PO; -VENTAER INH; -ZITH250T PO
[2016-10-16 17:04] VITALS: BP 108/64; PULSE 66; RESP 16; TEMP 98.2; O2SAT 95
--- NOTE | 2016-10-16 17:28 | PD ---
HPI Chief Complaint: Chest Pain Time Seen by Provider: 17:23 Travel History International Travel<30 days: No Contact w/Intl Traveler<30days: No Traveled to known affect area: No History of Present Illness HPI Patient comes in by EMS after being found lying on the street. Patient states people were getting tired of stepping over him and someone called an ambulance on him. Patient states that he was walking when he had a mechanical fall. Patient states he was using his walker, but feels like his equilibrium is off. Denies hitting his head or loss of consciousness. Patient complaining of pain everywhere. Patient states he's had multiple mechanical falls over the past week. Denies any headache, change in vision, numbness or tingling anywhere, fevers, cough, shortness of breath, or being evaluated for this. Patient states that he thinks he might have leukemia as he was at different hospital and they wanted to do a bone biopsy on him but he refused. 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) Pneumonia: Yes Past Surgical History Abdominal Surgery: Yes (7x hernia ) Appendectomy: Yes Cardiac Surgery: No Ear Surgery: No Endocrine Surgery: No Eye Surgery: No Genitourinary Surgery: No Oral Surgery: No Thoracic Surgery: No Other Surgery: Yes (facial, HERNIA REPAIR , LUNG SURGERY ) Social History Alcohol Use: Yes (10 BEERS DAILY ) Tobacco Use: Yes (5-15 cigs a day.) Substance Use: No Allergies-Medications (Allergen,Severity, Reaction): Uncoded Allergies: NARCOTICS (Allergy, Severe, ACTS OUT/BEHAVIORAL, 07/25/07) Reported Meds & Prescriptions Reported Meds & Active Scripts Active Reported Coreg (Carvedilol) 3.125 Mg Tab 3.125 Mg PO BID Amiodarone (Amiodarone HCl) 200 Mg Tab 200 Mg PO DAILY Review of Systems Except as stated in HPI: all other systems reviewed are Neg Physical Exam Narrative GENERAL: Well-developed, overly nourished, in no acute distress, and non-ill appearing. SKIN: Focused skin assessment warm and dry. HEAD: Atraumatic. Normocephalic. EYES: Pupils equal and round. EOMI. No scleral icterus. No injection or drainage. ENT: No nasal bleeding or discharge. Mucous membranes pink and moist. NECK: Trachea midline. No JVD. Supple. No nuclear rigidity. CARDIOVASCULAR: Regular rate and rhythm. No murmur appreciated. RESPIRATORY: No accessory muscle use. No respiratory distress. Scant wheezing throughout. Breath sounds equal bilaterally. MUSCULOSKELETAL: No obvious deformities. No clubbing. No cyanosis. No edema. Full range of motion able to move all extremities. NEUROLOGICAL: Awake and alert. No obvious cranial nerve deficits. Motor grossly within normal limits. Normal speech. PSYCHIATRIC: Appropriate mood and affect; insight and judgment normal. Data Data Last Documented VS Vital Signs Date Time Temp Pulse Resp B/P Pulse Ox O2 Delivery O2 Flow Rate FiO2 10/16/16 17:33 Room Air 10/16/16 17:04 98.2 66 16 108/64 95 Orders Electrocardiogram (10/16/16 17:17) Complete Blood Count With Diff (10/16/16 17:17) Comprehensive Metabolic Panel (10/16/16 17:17) Act Partial Throm Time (Ptt) (10/16/16 17:17) Prothrombin Time / Inr (Pt) (10/16/16 17:17) Urinalysis - C+S If Indicated (10/16/16 17:17) Chest, Single Ap (10/16/16 17:17) Ct Brain W/O Iv Contrast(Rout) (10/16/16 17:17) Ct Cerv Spine W/O Contrast (10/16/16 17:17) Ecg Monitoring (10/16/16 17:17) Iv Access Insert/Monitor (10/16/16 17:17) Oximetry (10/16/16 17:17) Sodium Chloride 0.9% Flush (Ns Flush) (10/16/16 17:30) Alcohol (Ethanol) (10/16/16 17:17) Ckmb (Isoenzyme) Profile (10/16/16 17:17) Troponin I (10/16/16 17:17) CKMB (10/16/16 17:40) CKMB% (10/16/16 17:40) Sodium Chlor 0.9% 1000 Ml Inj (Ns 1000 M (10/16/16 19:00) Labs Laboratory Tests Test 10/16/16 10/16/16 17:40 18:15 White Blood Count 8.4 TH/MM3 Red Blood Count 3.62 MIL/MM3 Hemoglobin 11.6 GM/DL Hematocrit 34.1 % Mean Corpuscular Volume 94.3 FL Mean Corpuscular Hemoglobin 32.2 PG Mean Corpuscular Hemoglobin 34.2 % Concent Red Cell Distribution Width 13.6 % Platelet Count 147 TH/MM3 Mean Platelet Volume 8.7 FL Neutrophils (%) (Auto) 71.6 % Lymphocytes (%) (Auto) 20.9 % Monocytes (%) (Auto) 6.7 % Eosinophils (%) (Auto) 0.4 % Basophils (%) (Auto) 0.4 % Neutrophils # (Auto) 6.0 TH/MM3 Lymphocytes # (Auto) 1.8 TH/MM3 Monocytes # (Auto) 0.6 TH/MM3 Eosinophils # (Auto) 0.0 TH/MM3 Basophils # (Auto) 0.0 TH/MM3 CBC Comment DIFF FINAL Differential Comment Prothrombin Time 11.4 SEC Prothromb Time International 1.0 RATIO Ratio Activated Partial 30.6 SEC Thromboplast Time Sodium Level 122 MEQ/L Potassium Level 3.4 MEQ/L Chloride Level 84 MEQ/L Carbon Dioxide Level 21.9 MEQ/L Anion Gap 16 MEQ/L Blood Urea Nitrogen 11 MG/DL Creatinine 1.16 MG/DL Estimat Glomerular Filtration 65 ML/MIN Rate Random Glucose 93 MG/DL Calcium Level 8.1 MG/DL Total Bilirubin 0.6 MG/DL Aspartate Amino Transf 133 U/L (AST/SGOT) Alanine Aminotransferase 74 U/L (ALT/SGPT) Alkaline Phosphatase 136 U/L Total Creatine Kinase 255 U/L Creatine Kinase MB 2.6 NG/ML Troponin I LESS THAN 0.02 NG/ML Total Protein 8.0 GM/DL Albumin 3.3 GM/DL Ethyl Alcohol Level 293 MG/DL Urine Color LIGHT-YELLOW Urine Turbidity CLEAR Urine pH 5.5 Urine Specific [place] 1.003 Urine Protein NEG mg/dL Urine Glucose (UA) NEG mg/dL Urine Ketones NEG mg/dL Urine Occult Blood NEG Urine Nitrite NEG Urine Bilirubin NEG Urine Urobilinogen LESS THAN 2.0 MG/DL Urine Leukocyte Esterase NEG Urine RBC LESS THAN 1 /hpf Urine WBC 1 /hpf Urine Squamous Epithelial <1 /hpf Cells Urine Mucus FEW /lpf Microscopic Urinalysis Comment CULT NOT INDICATED MDM Medical Decision Making Medical Screen Exam Complete: Yes Emergency Medical Condition: Yes Interpretation(s) EKG reviewed by Dr. Santillan shows sinus rhythm with first-degree AV block with a ventricular rate of 67. No STEMI. Differential Diagnosis Acute coronary syndrome, alcohol intoxication, intracranial hemorrhage, fracture , electrolyte abnormality, other Narrative Course Patient seen and examined. Initial laboratory and radiological studies were obtained and reviewed. Patient is given IV fluid. Discussed patient with Dr. Feldman, who saw and evaluated the patient and is in agreement with plan of care and disposition. Discussed all findings and plan of care with the patient, who is agreeable for admission. All questions were answered. Physician Communication Physician Communication [address] Gordillo, resident on-call for Dr. Murray, who is agreeable to admit the patient. Diagnosis Primary Impression: Hyponatremia Additional Impressions: EtOH dependence Qualified Code: F10.20 - Uncomplicated alcohol dependence Falls frequently Condition: Stable Eliseo Muñoz Oct 16, 2016 17:28
[2016-10-16] MEDS ORDERED: SODIUM CHLORIDE 0.9% FLUSH 10 ML FLUSH IVF PRN (17:30)
[2016-10-16 18:07] LABS: BASOPHIL % 0.4 % (0.0-2.0); EOSINOPHIL % 0.4 % (0.0-4.0); HEMATOCRIT 34.1 % (39.0-51.0); HEMO FLAGS DIFF FINAL; LYMPH % 20.9 % (9.0-44.0); LYMPHOCYTE # 1.8 TH/MM3 (1.0-4.8); MEAN CELL VOLUME 94.3 FL (80.0-100.0); MEAN CORPUSCULAR HEMOGLOBIN 32.2 PG (27.0-34.0); MEAN CORPUSCULAR HGB CONC 34.2 % (32.0-36.0); MONO % 6.7 % (0.0-8.0); NEUT % 71.6 % (16.0-70.0); PLATELET COUNT 147 TH/MM3 (150-450); RED BLOOD COUNT 3.62 MIL/MM3 (4.50-5.90); RED CELL DISTRIBUTION WIDTH 13.6 % (11.6-17.2); WHITE BLOOD COUNT 8.4 TH/MM3 (4.0-11.0)
[2016-10-16 18:21] LABS: APTT (PATIENT) 30.6 SEC (24.3-30.1); PROTHROMBIN TIME - PATIENT 11.4 SEC (9.8-11.6)
[2016-10-16 18:47] LABS: ALKALINE PHOSPHATASE 136 U/L (45-117); ALT (GPT) 74 U/L (12-78); ANION GAP 16 MEQ/L (5-15); AST (GOT) 133 U/L (15-37); BICARBONATE 21.9 MEQ/L (21.0-32.0); BLOOD UREA NITROGEN 11 MG/DL (7-18); CHLORIDE 84 MEQ/L (98-107); CREATINE KINASE 255 U/L (39-308); GLOMERULAR FILTRATION RATE 65 ML/MIN (>89); TOTAL BILIRUBIN ADULT 0.6 MG/DL (0.2-1.0)
[2016-10-16 18:49] LABS: POTASSIUM 3.4 MEQ/L (3.5-5.1)
[2016-10-16 18:51] LABS: SODIUM (NA) 122 MEQ/L (136-145)
--- NOTE | 2016-10-16 18:53 | RADRPT ---
EXAM DATE/TIME: 10/16/2016 18:42 [facility] COMPARISON: No previous studies available for comparison. INDICATIONS : Found lying on street. Possible fall. RADIATION DOSE: 36.07 CTDIvol (mGy) MEDICAL HISTORY : Cardiovascular disease. Hypertension. SURGICAL HISTORY : Appendectomy. Colostomy.7 hernia repairs. ENCOUNTER: Initial ACUITY: 1 day PAIN SCALE: 5/10 LOCATION: cranial TECHNIQUE: Multiple contiguous axial images were obtained of the head. Using automated exposure control and adj ustment of the mA and/or kV according to patient size, radiation dose was kept as low as reasonably a chievable to obtain optimal diagnostic quality images. FINDINGS: There is atrophy and mild periventricular white matter disease. No hemorrhage, infarct, or mass. Ther e are no obvious fractures. CONCLUSION: No acute disease. Agustín Walsh MD on October 16, 2016 at 18:51 Board Certified Radiologist. This report was verified electronically.
[2016-10-16 18:57] LABS: BLOOD, URINE NEG (NEG); GLUCOSE,URINE NEG (NEG); KETONE, URINE NEG (NEG); MUCUS URINE FEW /lpf (OCC); NITRITE,URINE NEG (NEG); PH, URINE 5.5 (5.0-8.5); SQUAMOUS EPITHELIAL CELL URINE <1 /hpf (0-5); URINE COLOR LIGHT-YELLOW (YELLW/STRAW)
[2016-10-16 18:58] LABS: COMMENT (UR) CULT NOT INDICATED; CULTURE IF INDICATED CULT NOT INDICATED
[2016-10-16] MEDS ORDERED: SODIUM CHLOR 0.9% 1000 ML INJ 1,000 ML IV ONE (19:00)
--- NOTE | 2016-10-16 19:02 | RADRPT ---
EXAM DATE/TIME: 10/16/2016 18:42 [facility] COMPARISON: No previous studies available for comparison. INDICATIONS : Found lying on street. Possible fall. RADIATION DOSE: 19.56 CTDIvol (mGy) MEDICAL HISTORY : Cardiovascular disease. Hypertension. SURGICAL HISTORY : Appendectomy. Colostomy.7 hernia repairs ENCOUNTER: Initial ACUITY: 1 day PAIN SCALE: 5/10 LOCATION: neck TECHNIQUE: Volumetric scanning of the cervical spine was performed. Multiplanar reconstructions in the sagittal, coronal and oblique axial planes were performed. Using automated exposure control and adjustment o f the mA and/or kV according to patient size, radiation dose was kept as low as reasonably achievable to obtain optimal diagnostic quality images. FINDINGS: Straightening of the cervical lordosis. No prevertebral soft tissue swelling. [id number] disc s pace narrowing greatest at C7-T1 with prominent anterior osteophytosis. Slight anterolisthesis of C4 on C5 noted. Moderate multilevel facet hypertrophic changes are noted. Bilateral carotid artery calci fications are noted. There is ankylosis of the C4-5 articular facet on the right. There are no compre ssion deformities. Cervicothoracic junction is approximated. Odontoid process is intact. Multilevel u ncovertebral hypertrophy noted. The anterior arch of C1 is not fused. CONCLUSION: Degenerative changes are noted without evidence of acute fracture or listhesis. Carotid atheroscleros is is present. There is mild basilar impression the tip of the odontoid process extending to the supe rior margin of the foramen magnum. Agustín Walsh MD on October 16, 2016 at 18:56 Board Certified Radiologist. This report was verified electronically.
--- NOTE | 2016-10-16 19:06 | RADRPT ---
EXAM DATE/TIME: 10/16/2016 17:41 [place] COMPARISON: CHEST SINGLE AP, March 12, 2015, 16:58. INDICATIONS : Short of breath MEDICAL HISTORY : Cardiovascular disease. Pneumonia SURGICAL HISTORY : Coronary artery stent. ENCOUNTER: Initial ACUITY: 3 months PAIN SCORE: 0/10 LOCATION: Bilateral chest FINDINGS: A single view of the chest demonstrates the lungs to be symmetrically aerated without evidence of mas s, infiltrate or effusion. The cardiomediastinal contours are unremarkable. Osseous structures are intact. CONCLUSION: No acute disease. Agustín Walsh MD on October 16, 2016 at 19:04 Board Certified Radiologist. This report was verified electronically.
--- NOTE | 2016-10-16 19:16 | PD ---
Data Data Last Documented VS Vital Signs Date Time Temp Pulse Resp B/P Pulse Ox O2 Delivery O2 Flow Rate FiO2 10/16/16 17:33 Room Air 10/16/16 17:04 98.2 66 16 108/64 95 Orders Electrocardiogram (10/16/16 17:17) Complete Blood Count With Diff (10/16/16 17:17) Comprehensive Metabolic Panel (10/16/16 17:17) Act Partial Throm Time (Ptt) (10/16/16 17:17) Prothrombin Time / Inr (Pt) (10/16/16 17:17) Urinalysis - C+S If Indicated (10/16/16 17:17) Chest, Single Ap (10/16/16 17:17) Ct Brain W/O Iv Contrast(Rout) (10/16/16 17:17) Ct Cerv Spine W/O Contrast (10/16/16 17:17) Ecg Monitoring (10/16/16 17:17) Iv Access Insert/Monitor (10/16/16 17:17) Oximetry (10/16/16 17:17) Sodium Chloride 0.9% Flush (Ns Flush) (10/16/16 17:30) Alcohol (Ethanol) (10/16/16 17:17) Ckmb (Isoenzyme) Profile (10/16/16 17:17) Troponin I (10/16/16 17:17) CKMB (10/16/16 17:40) CKMB% (10/16/16 17:40) Sodium Chlor 0.9% 1000 Ml Inj (Ns 1000 M (10/16/16 19:00) Admit Order (Ed Use Only) (10/16/16 19:26) Labs Laboratory Tests Test 10/16/16 10/16/16 17:40 18:15 White Blood Count 8.4 TH/MM3 Red Blood Count 3.62 MIL/MM3 Hemoglobin 11.6 GM/DL Hematocrit 34.1 % Mean Corpuscular Volume 94.3 FL Mean Corpuscular Hemoglobin 32.2 PG Mean Corpuscular Hemoglobin 34.2 % Concent Red Cell Distribution Width 13.6 % Platelet Count 147 TH/MM3 Mean Platelet Volume 8.7 FL Neutrophils (%) (Auto) 71.6 % Lymphocytes (%) (Auto) 20.9 % Monocytes (%) (Auto) 6.7 % Eosinophils (%) (Auto) 0.4 % Basophils (%) (Auto) 0.4 % Neutrophils # (Auto) 6.0 TH/MM3 Lymphocytes # (Auto) 1.8 TH/MM3 Monocytes # (Auto) 0.6 TH/MM3 Eosinophils # (Auto) 0.0 TH/MM3 Basophils # (Auto) 0.0 TH/MM3 CBC Comment DIFF FINAL Differential Comment Prothrombin Time 11.4 SEC Prothromb Time International 1.0 RATIO Ratio Activated Partial 30.6 SEC Thromboplast Time Sodium Level 122 MEQ/L Potassium Level 3.4 MEQ/L Chloride Level 84 MEQ/L Carbon Dioxide Level 21.9 MEQ/L Anion Gap 16 MEQ/L Blood Urea Nitrogen 11 MG/DL Creatinine 1.16 MG/DL Estimat Glomerular Filtration 65 ML/MIN Rate Random Glucose 93 MG/DL Calcium Level 8.1 MG/DL Total Bilirubin 0.6 MG/DL Aspartate Amino Transf 133 U/L (AST/SGOT) Alanine Aminotransferase 74 U/L (ALT/SGPT) Alkaline Phosphatase 136 U/L Total Creatine Kinase 255 U/L Creatine Kinase MB 2.6 NG/ML Troponin I LESS THAN 0.02 NG/ML Total Protein 8.0 GM/DL Albumin 3.3 GM/DL Ethyl Alcohol Level 293 MG/DL Urine Color LIGHT-YELLOW Urine Turbidity CLEAR Urine pH 5.5 Urine Specific [place] 1.003 Urine Protein NEG mg/dL Urine Glucose (UA) NEG mg/dL Urine Ketones NEG mg/dL Urine Occult Blood NEG Urine Nitrite NEG Urine Bilirubin NEG Urine Urobilinogen LESS THAN 2.0 MG/DL Urine Leukocyte Esterase NEG Urine RBC LESS THAN 1 /hpf Urine WBC 1 /hpf Urine Squamous Epithelial <1 /hpf Cells Urine Mucus FEW /lpf Microscopic Urinalysis Comment CULT NOT INDICATED MDM Medical Record Reviewed: Yes Supervised Visit with ABELINO: Yes Narrative Course I, Dr. Feldman, have reviewed the advance practice practitioner's documentation and am in agreement, met with the patient face to face, made the diagnosis, and the medical decision making was done by me. The patient was initially seen by Eliseo. Please see his complete history and physical. *My assessment and Findings: The patient is a 56-year-old male who presents to [facility] emergency Department with a long-standing history of alcohol abuse and a two-year history of gait instability. He reports that this has gradually been getting worse recently. He reports that he does use a wheeled walker for stability, however in spite of this he continues to fall over. In general, the patient's examination is remarkable for slightly slurred speech and an odor of alcohol about him. Otherwise neuro exam is nonfocal. The patient reports a history of atrial fibrillation, however currently he is in a sinus rhythm. He reports that he is normally on amiodarone. He last took this yesterday. On my arrival in the room, the patient is requesting food, water, and a call be placed to his ex- regarding his arrival in the emergency department. Laboratory studies were done. Laboratory studies were remarkable for hyponatremia with sodium of 122. The patient was noted to have mild hypokalemia with a potassium of 3.4, magnesium will be added to the patient 's laboratory studies as the patient is likely also hypo-mag and requires supplementation. CT scan of the brain showed no acute abnormality. Chest x- ray showed no acute abnormality. CT scan C-spine showed degenerative changes, otherwise no acute abnormality. The patient will be admitted to the hospital for continued evaluation and treatment of hyponatremia. Diagnosis Primary Impression: Hyponatremia Additional Impressions: EtOH dependence Qualified Code: F10.20 - Uncomplicated alcohol dependence Falls frequently Admitting Information Admitting Physician Requests: Admit Condition: Stable Yen Feldman MD Oct 16, 2016 19:16
[2016-10-16 19:22] LABS: CKMB 2.6 NG/ML (0.5-3.6)
--- NOTE | 2016-10-16 20:14 | HHI.HP ---
HPI Service Family Medicine Primary Care Physician Non-Staff Admission Diagnosis hyponatremia, alcohol intoxication, frequent falls Diagnoses: International Travel<30 Days: No Contact w/Intl Traveler<30days: No Known Affected Area: No History of Present Illness Patient is a 56 year old male with long history of alcohol abuse, atrial fibrillation, anxiety, HTN who was brought in by EMS after being found lying on the street earlier today. He states he normally drinks about 10-12 beers daily and had had about 7 or 8 beers earlier today before being called for EVAC. He reports a mechanical fall today as well despite using his walker. He denies trauma to his head or any LOC following the fall. He does report a headache he states more in his occipital area however this is unchanged from his usual headaches over the past weeks and denies any worsening head pain. He denies any history of seizures or DTs. Denies any recent fevers, chills, night sweats, SOB , cough. (Morgan Arteaga MD R1) Review of Systems Constitutional: COMPLAINS OF: Dizziness, DENIES: Fever, Weight loss, Chills Eyes: DENIES: Blurred vision, Diplopia, Double Vision Respiratory: DENIES: Cough, Wheezing, Sputum production, Shortness of breath Cardiovascular: DENIES: Palpitations Gastrointestinal: COMPLAINS OF: Diarrhea, DENIES: Constipation, Nausea, Vomiting Musculoskeletal: COMPLAINS OF: Neck pain Neurologic: COMPLAINS OF: Headache, Tremor, DENIES: Seizures Psychiatric: COMPLAINS OF: Anxiety (Morgan Arteaga MD R1) Past Family Social History 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 Facial reconstruction Lung fistula repair Reported Medications Reported Meds & Active Scripts Active Reported Coreg (Carvedilol) 3.125 Mg Tab 3.125 Mg PO BID Amiodarone (Amiodarone HCl) 200 Mg Tab 200 Mg PO DAILY (Morgan Arteaga MD R1) Allergies: Uncoded Allergies: NARCOTICS (Allergy, Severe, ACTS OUT/BEHAVIORAL, 07/25/07) Family History Father with dementia Patient denies any other pertinent family history Social History Drinks 10-12 beers daily, admits to etoh abuse since his early 20s Smokes 5-15 cigarettes daily for many years Denies substance use currently or in the past Currently homeless Had been living with his ex- prior to being kicked out a few weeks ago He reports having a PCP unsure of the name, also reports having seen a admitting officer in the past His ex- is able to get his prescription medications for him (Morgan Arteaga MD R1) Physical Exam Vital Signs Vital Signs Date Time Temp Pulse Resp B/P Pulse Ox O2 Delivery O2 Flow Rate FiO2 10/16/16 17:33 Room Air 10/16/16 17:04 98.2 66 16 108/64 95 Physical Exam GENERAL: NAD, sitting comfortably in bed, mild resting tremor noted NEURO: AOx3. Normal speech. automation specialist intact. Strength 5/5 in upper extremities, 4/5 in lower extremities. Sensation intact. Gait not tested. Reflexes 2+. SKIN: Warm and dry. Some erythema of right distal upper extremity that is nontender to the touch. HEAD: Normocephalic. Atraumatic. EYES: PERRL. EOMI. No scleral icterus. No injection or drainage. ENT: No nasal drainage. Moist mucous membranes. No oral ulcers or lesions. NECK: Supple, trachea midline. No JVD or lymphadenopathy. CARDIOVASCULAR: Regular rate and rhythm without murmurs, rubs, or gallops. Peripheral pulses 2+. Capillary refill < 2 seconds. RESPIRATORY: Breath sounds clear to auscultation and equal bilaterally, without wheezes, rales, or rhonchi. No accessory muscle use. GASTROINTESTINAL: Abdomen soft, nontender, protuberant, normal BS. Unable to appreciate any organomegaly or masses. No rebound tenderness. No guarding. Ostomy bag in place, no stool in bag. MUSCULOSKELETAL: No edema. Normal range of motion. BACK: Nontender without obvious deformity. Laboratory Laboratory Tests Test 10/16/16 10/16/16 17:40 18:15 White Blood Count 8.4 Red Blood Count 3.62 Hemoglobin 11.6 Hematocrit 34.1 Mean Corpuscular Volume 94.3 Mean Corpuscular Hemoglobin 32.2 Mean Corpuscular Hemoglobin 34.2 Concent Red Cell Distribution Width 13.6 Platelet Count 147 Mean Platelet Volume 8.7 Neutrophils (%) (Auto) 71.6 Lymphocytes (%) (Auto) 20.9 Monocytes (%) (Auto) 6.7 Eosinophils (%) (Auto) 0.4 Basophils (%) (Auto) 0.4 Neutrophils # (Auto) 6.0 Lymphocytes # (Auto) 1.8 Monocytes # (Auto) 0.6 Eosinophils # (Auto) 0.0 Basophils # (Auto) 0.0 CBC Comment DIFF FINAL Differential Comment Prothrombin Time 11.4 Prothromb Time International 1.0 Ratio Activated Partial 30.6 Thromboplast Time Sodium Level 122 Potassium Level 3.4 Chloride Level 84 Carbon Dioxide Level 21.9 Anion Gap 16 Blood Urea Nitrogen 11 Creatinine 1.16 Estimat Glomerular Filtration 65 Rate Random Glucose 93 Calcium Level 8.1 Total Bilirubin 0.6 Aspartate Amino Transf 133 (AST/SGOT) Alanine Aminotransferase 74 (ALT/SGPT) Alkaline Phosphatase 136 Total Creatine Kinase 255 Creatine Kinase MB 2.6 Troponin I LESS THAN 0.02 Total Protein 8.0 Albumin 3.3 Ethyl Alcohol Level 293 Urine Color LIGHT-YELLOW Urine Turbidity CLEAR Urine pH 5.5 Urine Specific [place] 1.003 Urine Protein NEG Urine Glucose (UA) NEG Urine Ketones NEG Urine Occult Blood NEG Urine Nitrite NEG Urine Bilirubin NEG Urine Urobilinogen LESS THAN 2.0 Urine Leukocyte Esterase NEG Urine RBC LESS THAN 1 Urine WBC 1 Urine Squamous Epithelial <1 Cells Urine Mucus FEW Microscopic Urinalysis Comment CULT NOT INDICATED (Morgan Arteaga MD R1) Result Diagram: 10/16/16173910/16/161739 Imaging Last [address] 10/16/161716 Signed Impressions: Service Date/Time: Sunday, October 16, 2016 18:42 - CONCLUSION: No acute disease. Agustín Walsh MD Chest X-Ray 10/16/161716 Signed Impressions: Service Date/Time: Sunday, October 16, 2016 17:41 - CONCLUSION: No acute disease. Agustín Walsh MD Cervical Spine CT 10/16/161716 Signed Impressions: Service Date/Time: Sunday, October 16, 2016 18:42 - CONCLUSION: Degenerative changes are noted without evidence of acute fracture or listhesis. Carotid atherosclerosis is present. There is mild basilar impression the tip of the odontoid process extending to the superior margin of the foramen magnum. Agustín Walsh MD (Morgan Arteaga MD R1) Septic Shock Reassessment Heart: Regular rate and rhythm Lungs: Clear Skin: Warm, Dry Peripheral Pulses: Bounding Right Radial Bounding Left Radial Bounding Right Dorsalis Pedis Bounding Left Dorsalis Pedis Bounding Right Posterior Tibial Bounding Left Posterior Tibial Capillary Refill: <2 seconds (Morgan Arteaga MD R1) Assessment and Plan Assessment and Plan 56 year old male with a long history of alcohol abuse, atrial fibrillation, anxiety, HTN who was brought in by EMS after being found lying on the street earlier today and s/p a reported mechanical fall. Patient is found to have a sodium level of 122. Code Status OK with CPR and ACLS protocol Patient stated he is a DNI Discussed Condition With dw Dr. Gordillo (Morgan Arteaga MD R1) Attending Attestation THIS CASE WAS DISCUSSED WITH THE RESIDENT PHYSICIANS. I HAVE REVIEWED THE RECORD AND AGREE WITH THE ABOVE NOTE AND PLAN OF CARE WAS DISCUSSED. I HAVE AUTHORIZED THE ORDER FOR ADMISSION TO AN IN-PATIENT STATUS. (Jasson Murray MD) Problem List: (1) Hyponatremia Status: Chronic Plan: Na level of 122 on admission, patient appears euvolemic, patient has had hyponatremia in the past - Start isotonic saline at maintenance rate and will recheck Na overnight and adjust fluid rate if needed - BMP tomorrow AM (2) ETOH abuse Status: Chronic Plan: Patient reports intake of 10-12 beers daily CIWA protocol MV, thiamine, and folic acid (3) Atrial fibrillation Status: Chronic Plan: Currently regular rate and rhythm on exam Continue amiodarone 200 mg po daily Continue coreg 3.125 mg po bid (4) Hypokalemia Status: Acute Plan: K 3.4 on admission however some hemolysis noted Replete with oral KCl 40 meq x1 Mg level ordered, replete if needed BMP tomorrow AM (5) Accident due to mechanical fall without injury Status: Acute Plan: Head CT negative CXR negative C-spine CT negative for acute fracture Patient denies any focal pain other than dull headache at baseline over past few weeks Patient has a history of multiple falls despite using a walker - OOB with assistance only - Consult PT Heart healthy diet (Morgan Arteaga MD R1) Physician Certification 2 Midnight Certification Type: Admission for Inpatient Services Order for Inpatient Services The services are ordered in accordance with Medicare regulations or non- Medicare payer requirements, as applicable. In the case of services not specified as inpatient-only, they are appropriately provided as inpatient services in accordance with the 2-midnight benchmark. Estimated LOS (days): 2 days is the estimated time the patient will need to remain in the hospital, assuming treatment plan goals are met and no additional complications. Post-Hospital Plan: Home (Morgan Arteaga MD R1) Morgan Arteaga MD R1 Oct 16, 2016 20:14 Jasson Murray MD Oct 17, 2016 11:18
[2016-10-16] MEDS ORDERED: SODIUM CHLORIDE 0.9% FLUSH 10 ML FLUSH IV FLUSH PRN (21:15)
[2016-10-16] MEDS ORDERED: POTASSIUM CHLORIDE 10 MEQ CONTROLLED RELEASE TAB PO ONE (21:15)
[2016-10-16] MEDS ORDERED: LORazepam 2 MG/ML VIAL IV PUSH PRN ×4 (21:15)
[2016-10-16] MEDS ORDERED: NALOXONE HCL 0.4 MG/ML AMP IV PRN (21:15)
[2016-10-16] MEDS ORDERED: FLUMAZENIL 0.5 MG/5 ML VIAL IV PUSH PRN (21:15)
[2016-10-16] MEDS ORDERED: LORazepam 2 MG TAB PO PRN (21:15)
[2016-10-16] MEDS: SODIUM CHLORIDE 0.9% FLUSH 10 ML FLUSH IV FLUSH SCH (21:25)
[2016-10-16] MEDS: SODIUM CHLOR 0.9% 1000 ML INJ 1,000 ML IV SCH (21:34)
[2016-10-16 21:35] VITALS: BP 156/87; PULSE 73; RESP 18; O2SAT 100
[2016-10-16 22:19] VITALS: BP 106/53; PULSE 80; RESP 18; TEMP 97.2; O2SAT 98
[2016-10-16] MEDS: REMOVE OLD PATCH T-DERMAL SCH (22:30)
[2016-10-16] MEDS: NICOTINE 14 MG/24 HR PATCH T-DERMAL SCH (23:15)
[2016-10-17] VITALS (7 sets, daily range): BP systolic 123–164; BP diastolic 76–94; PULSE 71–77; RESP 16–20; TEMP 97–98; O2SAT 95–98
[2016-10-17] MEDS ORDERED: MAGNESIUM OXIDE 400 MG TAB PO ONE (01:30)
[2016-10-17] MEDS: SODIUM CHLOR 0.9% 1000 ML INJ 1,000 ML IV SCH ×2 (03:28→15:04)
[2016-10-17] MEDS ORDERED: POTASSIUM CHLORIDE 10 MEQ CONTROLLED RELEASE TAB PO ONE (08:15)
--- NOTE | 2016-10-17 08:55 | EKG ---
Date Performed: 10/16/2016 Time Performed: 17:47:12 PTAGE: 56 years EKG: Sinus rhythm WITH FIRST DEGREE AV BLOCK LOW QRS VOLTAGE IN EXTREMITY LEADS SEPTAL MYOCARDIAL INFARCTION PROLONGED QT INTERVAL ABNORMAL ECG PREVIOUS TRACING : 07/20/2016 18.04 Compared to previous tracing, sinus rhythm has replaced atr ial fibrillation, prolonged QT interval is now evident. DOCTOR: Robin Rodriguez Interpretating Date/Time 10/17/2016 08:53:35
[2016-10-17] MEDS ORDERED: REMOVE OLD PATCH T-DERMAL ONE (09:00)
[2016-10-17 10:30] LABS: BICARBONATE 24.4 MEQ/L (21.0-32.0); MAGNESIUM 1.5 MG/DL (1.5-2.5)
--- NOTE | 2016-10-17 11:18 | HHI.FPPN ---
Subjective Remarks Patient continues to feel very weak and fatigued, states that he is unsteady on his feet when he tries to stand up. He also complains of pain in his bilateral legs, especially in his feet. Otherwise there are no acute issues overnight patient states that he is doing relatively well. He does endorse a nonproductive cough that is causing some chest wall discomfort. He denies any chest pain or palpitations, denies any fevers or chills, denies any nausea or vomiting, denies any lightheadedness or dizziness. In summary this is a 56-year-old male presenting to the emergency department after being found down, lying on the street after a fall. He has a long history of alcohol abuse and has had several hospitalizations for falls. States that he normally drinks 10-12 beers daily and had about 7 or 8 beers on the day of admission prior to his fall. He describes it as a mechanical fall, stating his walker fell forward and he fell forward over top of it. He denies any loss of consciousness, denies any hitting of his head, denies any dizziness or lightheadedness, denies any palpitations. He was unable to get up himself and therefore EVAC was called. 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 Facial reconstruction Lung fistula repair Family History Father with dementia Patient denies any other pertinent family history Social History Drinks 10-12 beers daily, admits to etoh abuse since his early 20s Smokes 5-15 cigarettes daily for many years Denies substance use currently or in the past Currently homeless Had been living with his ex- prior to being kicked out a few weeks ago He reports having a PCP unsure of the name, also reports having seen a metrology specialist in the past His ex- is able to get his prescription medications for him Objective Vitals Vital Signs Date Time Temp Pulse Resp B/P Pulse Ox O2 Delivery O2 Flow Rate FiO2 10/17/16 07:39 97.6 73 16 163/92 95 10/17/16 05:13 97.0 71 17 133/83 95 10/17/16 01:12 97.8 73 16 123/76 97 10/17/16 01:11 97.8 73 16 123/76 97 10/16/16 22:19 97.2 80 18 106/53 98 10/16/16 21:35 73 18 156/87 100 10/16/16 17:33 Room Air 10/16/16 17:04 98.2 66 16 108/64 95 I/O 10/16/16 10/16/16 10/16/16 10/17/16 10/17/16 10/17/16 07:00 15:00 23:00 07:00 15:00 23:00 Intake Total 240 ml Output Total 600 ml 1600 ml 600 ml Balance -360 ml -1600 ml -600 ml Intake Oral 240 ml Output Urine Total 600 ml 1600 ml 600 ml # Voids 1 2 Result Diagram: 10/16/16 1740 10/17/16 0950 Imaging Last [address] 10/16/161716 Signed Impressions: Service Date/Time: Sunday, October 16, 2016 18:42 - CONCLUSION: No acute disease. Agustín Walsh MD Chest X-Ray 10/16/161716 Signed Impressions: Service Date/Time: Sunday, October 16, 2016 17:41 - CONCLUSION: No acute disease. Agustín Walsh MD Cervical Spine CT 10/16/161716 Signed Impressions: Service Date/Time: Sunday, October 16, 2016 18:42 - CONCLUSION: Degenerative changes are noted without evidence of acute fracture or listhesis. Carotid atherosclerosis is present. There is mild basilar impression the tip of the odontoid process extending to the superior margin of the foramen magnum. Agustín Walsh MD Objective Remarks GENERAL: NAD, sitting comfortably in bed, mild resting tremor noted NEURO: AOx3. Normal speech. egg smeller intact. SKIN: Warm and dry. Some erythema of right distal upper extremity that is nontender to the touch. NECK: Supple, trachea midline. No JVD or lymphadenopathy. CARDIOVASCULAR: Regular rate and rhythm without murmurs, rubs, or gallops. RESPIRATORY: Breath sounds clear to auscultation and equal bilaterally, without wheezes, rales, or rhonchi. No accessory muscle use. GASTROINTESTINAL: Abdomen soft, nontender, protuberant, normal BS. Ostomy bag in place, stool in bag is brown with no evidence of blood. Multiple scars over the abdomen MUSCULOSKELETAL: No edema. Normal range of motion. A/P Assessment and Plan 56 year old male with a long history of alcohol abuse, atrial fibrillation, anxiety, HTN who was brought in by EMS after being found lying on the street earlier today and s/p a reported mechanical fall. Patient is found to have a sodium level of 122. Problem List: (1) Generalized weakness Status: Acute Plan: Patient complains of generalized weakness with mechanical fall and has history of falls Likely multifactorial with deconditioning, poor nutrition, and alcohol abuse Head CT negative CXR negative C-spine CT negative for acute fracture Physical therapy to evaluate patient (2) Hyponatremia Status: Chronic Plan: Secondary to chronic alcohol use Na level of 122 on admission, given 1 L normal saline bolus in the emergency department followed by normal saline at 95 mL/hour - Repeat sodium 7 hours later 129 Sodium normalized to 136 on BMP the morning of 10/17 Monitor daily BMPs and correct as needed (3) Atrial fibrillation Status: Chronic Plan: Currently in sinus rhythm with first-degree AV block and prolonged QT on motor bus driver on telemetry Continue amiodarone 200 mg po daily Continue coreg 3.125 mg po bid (4) Hypokalemia Status: Acute Plan: Potassium 4.0 with lab work this morning Replete with oral KCl as needed Magnesium level low at 1.3, replete and recheck Monitor daily and replete as needed (5) ETOH abuse Status: Chronic Plan: Patient reports intake of 10-12 beers daily CIWA protocol MV, thiamine, and folic acid Jasson Murray MD Oct 17, 2016 11:18
[2016-10-17] MEDS: SODIUM CHLORIDE 0.9% FLUSH 10 ML FLUSH IV FLUSH SCH ×2 (11:28→20:43)
[2016-10-17] MEDS: CARVEDILOL 3.125 MG TAB PO SCH ×2 (11:28→20:42)
[2016-10-17] MEDS: MULTIVITAMINS/MINERALS THERAPEUTIC TAB PO SCH (11:28)
[2016-10-17] MEDS: AMIODARONE 200 MG TAB PO SCH (11:28)
[2016-10-17] MEDS: FOLIC ACID 1 MG TAB PO SCH (11:29)
[2016-10-17] MEDS: NICOTINE 14 MG/24 HR PATCH T-DERMAL SCH (11:29)
[2016-10-17] MEDS: THIAMINE HCL 100 MG TAB PO SCH (11:29)
--- NOTE | 2016-10-17 11:48 | PD.CONS ---
Provisional Diagnosis Admission Date Oct 16, 2016 at 19:28 Belva I. Alcohol-induced mood disorder, alcohol use disorder, history of depression Belva II. Deferred Belva III. A. fib, hyponatremia Belva IV. Homelessness Belva V. 56 History of Present Illness Service Psychiatry Consult Requested By Primary Care Physician Non-Staff HPI The patient is a 56 year-old man, domiciled with ex-, unemployed, on SSI, with psychiatric history of depression, anxiety, numerous hospitalizations, suicidal and parasuicidal attempts, alcohol use disorder, medical history of atrial fibrillation, HTN who was brought in by EMS after being found lying on the street earlier today. He states he normally drinks about 10-12 beers daily and had had about 7 or 8 beers earlier today before being called for EVAC. He reports a mechanical fall today as well despite using his walker. Initial BAL was 293, NA 122. Consulted to psychiatry due to depressive symptoms. On psychiatric evaluation today patient is found laying in his bed, cooperative, but irritable. Patient denies depressive symptoms, he denies anxiety, he says that he is alcohol every day in order to treat anxiety and depression "and this is more successful to your pills, antidepressants don' t work for me". Patient says that other than alcohol she also used Ativan, but was unable to states if he has a prescriber.. Patient denies suicidal and was ideation, he denies visual and auditory hallucinations. She is future oriented , he says that he cannot go back to his ex- house, but he will go to a long-term that he signed out himself about 2 weeks ago in [place]. Patient is fully oriented 3, no attention deficit, no gross cognitive impairment is observed. No withdrawal symptoms present.. He denies the use of illegal drugs. Review of Systems Constitutional: DENIES: Diaphoretic episodes, Fatigue, Fever, Weight gain, Weight loss, Chills, Dizziness, Change in appetite, Night Sweats Endocrine: DENIES: Heat/cold intolerance, Polydipsia, Polyuria, Polyphagia Eyes: DENIES: Blurred vision, Diplopia, Eye inflammation, Eye pain, Vision loss , Photosensitivity, Double Vision Ears, nose, mouth, throat: DENIES: Tinnitus, Hearing loss, Vertigo, Nasal discharge, Oral lesions, Throat pain, Hoarseness, Ear Pain, Running Nose, Epistaxis, Sinus Pain, Toothache, Odynophagia Respiratory: DENIES: Apneas, Cough, Snoring, Wheezing, Hemoptysis, Sputum production, Shortness of breath Cardiovascular: DENIES: Chest pain, Palpitations, Syncope, Dyspnea on Exertion , PND, Lower Extremity Edema, Orthopnea, Claudication Gastrointestinal: DENIES: Abdominal pain, Black stools, Bloody stools, Constipation, Diarrhea, Nausea, Vomiting, Difficulty Swallowing, Anorexia Integumentary: DENIES: Abnormal pigmentation, Nail changes, Pruritus, Rash Immunologic/allergic: DENIES: Eczema, Urticaria Neurologic: DENIES: Abnormal gait, Headache, Localized weakness, Paresthesias, Seizures, Speech Problems, Tremor, Poor Balance Psychiatric: DENIES: Anxiety, Confusion, Mood changes, Depression, Hallucinations, Agitation, Suicidal Ideation, Homicidal Ideation, Delusions Past Family Social History Uncoded Allergies: NARCOTICS (Allergy, Severe, ACTS OUT/BEHAVIORAL, 07/25/07) Reported Medications Carvedilol (Coreg)3.125 Mg Tab3.125 Mg PO BID #60 TAB Ref 0 07/17/16 Amiodarone 200 Mg [id number] Mg PO DAILY #30 TAB Ref 0 07/17/16 Discontinued Scripts Levofloxacin (Levaquin)500 Mg [id number] Mg PO DAILY #3 TAB Ref 0 Prov:Gregor Ibrahim MD 07/22/16 Metronidazole 500 Mg [id number] Mg PO TID #3 TAB Ref 0 Prov:Gregor Ibrahim MD 07/22/16 Chlordiazepoxide 5 Mg Cap5 Mg PO TID PRN (Anxiety) #10 CAP Ref 0 Prov:Gregor Ibrahim MD 07/22/16 Current Medications Medications (Trade) Dose Ordered Sig/Vijay Route Start Time Stop Time Status Last Admin (Romazicon Inj) 0.2 mg Q1M PRN IV PUSH 10/16/16 21:15 (Ativan) 1 mg Q4H PRN PO 10/16/16 21:15 (Ativan Inj) 1 mg Q4H PRN IV PUSH 10/16/16 21:15 10/16/16 21:34 (Ativan) 2 mg Q2H PRN PO 10/16/16 21:15 10/17/16 02:39 (Ativan Inj) 2 mg Q2H PRN IV PUSH 10/16/16 21:15 (Ativan Inj) 2 mg Q1H PRN IV PUSH 10/16/16 21:15 Lorazepam 2 mg 2 mg Q15M PRN IV PUSH 10/16/16 21:15 (NS 1000 ml Inj) 1,000 ml @ 95 mls/hr [id number] IV 10/16/16 21:07 10/16/16 21:34 (NS Flush) 2 ml UNSCH PRN IV FLUSH 10/16/16 21:15 (NS Flush) 2 ml BID IV FLUSH 10/16/16 21:15 10/17/16 11:28 (Narcan Inj) 0.4 mg UNSCH PRN IV 10/16/16 21:15 (Cordarone) 200 mg DAILY PO 10/17/16 09:00 10/17/16 11:28 (Coreg) 3.125 mg BID PO 10/17/16 09:00 10/17/16 11:28 (Folate) 1 mg DAILY PO 10/17/16 09:00 10/22/16 08:59 10/17/16 11:29 (Vitamin B1) 100 mg DAILY PO 10/17/16 09:00 10/17/16 11:29 (Theragran M Tab) 1 tab DAILY PO 10/17/16 09:00 10/22/16 08:59 10/17/16 11:28 (Habitrol 14 Mg Patch.24 Hr) 1 patch DAILY T-DERMAL 10/16/16 23:15 10/17/16 11:29 Miscellaneous Information 1 HS T-DERMAL 10/16/16 21:00 10/16/16 22:30 Family History He denies Social History Patient [place], he has been living so far with his , but now homeless. He is , unemployed, supported by [employer], his highest level of education is high school Patient's Strengths (min. 2) Verbal communication Physical Exam No EPS, no tremors, no stiffness, no eyes or mouth abnormalities Vital Signs Vital Signs Date Time Temp Pulse Resp B/P Pulse Ox O2 Delivery O2 Flow Rate FiO2 10/17/16 11:17 97.4 77 18 135/85 95 10/16/16 17:33 Room Air I/O 10/16/16 10/16/16 10/17/16 08:00 16:00 00:00 Intake Total 240 ml Output Total 600 ml Balance -360 ml Lab Results BAL 293, NA 122 Mental Status Examination Appearance man, good hygiene, age appearing, [facility], irritable, but cooperative Speech: Unremarkable Orientation: x3 Memory: Unremarkable Thought Process: Logical Thought Content: Unremarkable Hallucination Type: None Attention and Concentration: Good Suicidal Ideation: No Previous Suicide Attempts: No Homicidal Ideation: No Judgment: WNL Affect: Irritable Mood: Appropriate Motor Activity: Abnormal gait-specify Assessment & Plan Problem List: (1) Alcohol abuse with alcohol-induced mood disorder Assessment & Plan: Psychiatric evaluation the patient does not have any evidence of depression, anxiety, kellie or psychosis. He denies suicidal or homicidal ideation, he denies visual and auditory hallucinations. Patient declines to go to detox. He doesn't benefit of psychiatric admission at this moment. Patient is future oriented, he wants to be discharged to long-term. Extensive support, motivation psycho education provided. No psychotropics recommended. [facility] protocol. ICD Code: F10.14 Assessment & Plan Estimated LOS: Riley Torres MD Oct 17, 2016 11:47
[2016-10-17] MEDS: LORazepam 1 MG TAB PO PRN ×2 (13:14→20:42)
[2016-10-17] MEDS: REMOVE OLD PATCH T-DERMAL SCH (20:43)
[2016-10-17] MEDS ORDERED: diphenhydrAMINE HCL 50 MG CAP PO PRN (21:30)
[2016-10-18 00:39] VITALS: BP 158/87; PULSE 73; RESP 19; TEMP 98.3; O2SAT 98
[2016-10-18] MEDS: SODIUM CHLOR 0.9% 1000 ML INJ 1,000 ML IV SCH (01:35)
[2016-10-18] MEDS: LORazepam 1 MG TAB PO PRN ×2 (02:54→09:29)
[2016-10-18 04:50] VITALS: BP 165/80; PULSE 70; RESP 21; O2SAT 95
[2016-10-18 07:18] VITALS: BP 149/87; PULSE 64; RESP 18; TEMP 97.8; O2SAT 95
--- NOTE | 2016-10-18 08:17 | HHI.FPPN ---
Subjective Remarks The patient has been seen and examined this am. His vitals are stable and he is afebrile. He rested well overnight. States he feels a bit unsteady on his feet. Is eating well. Denies CP or SOB. States he was supposed to have a bone marrow biopsy done at [facility]. (Melony Sofia MD R3) Objective Vitals Vital Signs Date Time Temp Pulse Resp B/P Pulse Ox O2 Delivery O2 Flow Rate FiO2 10/18/16 07:18 97.8 64 18 149/87 95 10/18/16 04:50 70 21 165/80 95 10/18/16 00:39 98.3 73 19 158/87 98 10/17/16 19:36 98.0 77 20 150/82 98 10/17/16 15:18 97.7 71 16 164/94 96 10/17/16 11:17 97.4 77 18 135/85 95 I/O 10/17/16 10/17/16 10/17/16 10/18/16 10/18/16 10/18/16 07:00 15:00 23:00 07:00 15:00 23:00 Intake Total 50 ml Output Total 1600 ml 600 ml 800 ml Balance -1600 ml -600 ml -800 ml 50 ml Intake Oral 50 ml Output Urine Total 1600 ml 600 ml 800 ml # Voids 2 2 1 (Melony Sofia MD R3) Result Diagram: 10/16/16 1740 10/17/16 0950 Objective Remarks GENERAL: NAD, sitting comfortably in bed, mild resting tremor noted, malordorous NEURO: AOx3. Normal speech. dock grader intact. SKIN: Warm and dry. Some erythema of right distal upper extremity that is nontender to the touch. NECK: Supple, trachea midline. No JVD or lymphadenopathy. CARDIOVASCULAR: Regular rate and rhythm without murmurs, rubs, or gallops. RESPIRATORY: Breath sounds clear to auscultation and equal bilaterally, without wheezes, rales, or rhonchi. No accessory muscle use. GASTROINTESTINAL: Abdomen soft, nontender, protuberant, normal BS. Ostomy bag in place, stool in bag is brown with no evidence of blood. Multiple scars over the abdomen MUSCULOSKELETAL: No edema. Normal range of motion. (Melony Sofia MD R3) A/P Assessment and Plan 56 year old male with a long history of alcohol abuse, atrial fibrillation, anxiety, HTN who was brought in by EMS after being found lying on the street earlier today and s/p a reported mechanical fall. Patient is found to have a sodium level of 122. Discharge Planning Patient is medically stable for discharge. PT recommends rehab. Case management is assisting with placement. Discussed with Drs. Gordillo and Terri (Melony Sofia MD R3) Problem List: (1) Generalized weakness Status: Acute Plan: Likely multifactorial with deconditioning, poor nutrition, and alcohol abuse Head CT negative CXR negative C-spine CT negative for acute fracture Physical therapy recommends rehab (2) Hyponatremia Status: Resolved Plan: Sodium normalized to 136 on BMP the morning of 10/17 Monitor daily BMPs and correct as needed (3) Atrial fibrillation Status: Chronic Plan: Currently in sinus rhythm with first-degree AV block and prolonged QT on property handler on telemetry Continue amiodarone 200 mg po daily Continue coreg 3.125 mg po bid (4) Hypokalemia Status: Resolved Plan: Resolved. Repeat BMP this am pending. (5) ETOH abuse Status: Chronic Plan: Patient reports intake of 10-12 beers daily CIWA protocol MV, thiamine, and folic acid (Melony Sofia MD R3) Melony Sofia MD R3 Oct 18, 2016 08:17 Jasson Murray MD Oct 18, 2016 16:00
[2016-10-18] MEDS: NICOTINE 14 MG/24 HR PATCH T-DERMAL SCH (09:28)
[2016-10-18] MEDS: CARVEDILOL 3.125 MG TAB PO SCH (09:29)
[2016-10-18] MEDS: FOLIC ACID 1 MG TAB PO SCH (09:29)
[2016-10-18] MEDS: SODIUM CHLORIDE 0.9% FLUSH 10 ML FLUSH IV FLUSH SCH (09:29)
[2016-10-18] MEDS: AMIODARONE 200 MG TAB PO SCH (09:29)
[2016-10-18] MEDS: THIAMINE HCL 100 MG TAB PO SCH (09:29)
[2016-10-18] MEDS: MULTIVITAMINS/MINERALS THERAPEUTIC TAB PO SCH (09:29)
[2016-10-18 12:06] LABS: BICARBONATE 26.4 MEQ/L (21.0-32.0); POTASSIUM 3.9 MEQ/L (3.5-5.1)
[2016-10-18 12:42] VITALS: BP 143/78; PULSE 74; RESP 16; TEMP 98.4; O2SAT 99
[2016-10-18 15:24] VITALS: BP 133/82; PULSE 68; RESP 16; TEMP 97.8; O2SAT 98
--- NOTE | 2016-10-18 16:17 | PD.AMA ---
Against Medical Advice Note Discharge Disposition: Against Medical Advice Pt Condition on Discharge: Stable AMA Statement Patient Gregory Grubbs has decided to leave the hospital against medical advice. This patient has the capacity to refuse care and understands the risks of leaving, including permanent disability and/or , and has had an opportunity to ask questions about his condition. The patient has been informed that he may return for care at any time, and follow up has been arranged/ advised. Lamar Nascimento MD R1 Oct 18, 2016 16:17
== END 2016-10-18 19:19 | disposition home or self-care (01) | DRG 641 ==
LOC: NEPC 16:30 → NEDA 19:28 → NEPGCP 22:11
PROVIDERS: ADMIT Family Medicine; ATTEND Family Medicine
DX: E87.1 Hypo-osmolality and hyponatremia (principal); E83.42 Hypomagnesemia; I10 Essential (primary) hypertension; F10.24 Alcohol dependence with alcohol-induced mood disorder; F10.229 Alcohol dependence with intoxication, unspecified; E87.6 Hypokalemia; I44.0 Atrioventricular block, first degree; I48.91 Unspecified atrial fibrillation; F17.210 Nicotine dependence, cigarettes, uncomplicated; F31.9 Bipolar disorder, unspecified; R29.6 Repeated falls; W19.XXXA Unspecified fall, initial encounter; Z59.0 Homelessness; Z93.3 Colostomy status; Y92.410 Unspecified street and highway as the place of occurrence of the external cause
CPT/HCPCS: 70450; 71010; 72125; 80048; 80053; 80307; 81001; 82550; 82552; 83735; 84295; 84484; 85025; 85610; 85730; 93005; J2060; J7030; Q0163